=== PATIENT | male | born 1955 | race Caucasian/White ===

== ENCOUNTER → 2016-08-10 | Outpatient (CLI) | payer BC ==
[~2016-08-10] MED LIST: ASPI81TA28 PO; ATEN50TA8 PO; CRS10 PO; CTP/1 PO; DILT-119 PO; GLC/500 PO; GLIP-197 PO; GLIP5TAB11 PO; MULT-506 PO; MULT-884; ROSU20TA PO; ROSU5TAB PO; SPIR25TA PO; TRAM-10 PO
[2016-08-10 12:29] LABS: ESTIMATED AVERAGE GLUCOSE 194 mg/dl; HA1C FLAG Normal (Normal)
== END | disposition home or self-care (01) ==
LOC: C.LAB1850 10:46
PROVIDERS: ATTEND Internal Medicine
DX: E11.9 Type 2 diabetes mellitus without complications (principal)

== ENCOUNTER → 2016-10-04 | Day surgery (SDC) | payer BC ==
[2016-09-13 11:49] VITALS: Ht 182.9 cm; Wt 98.2 kg
[~2016-10-04] VITALS: Ht 182.9 cm; Wt 98.2 kg
[~2016-10-04] MED LIST changes: +500ML BSS 0.3ML EPI 1:1000PF IRRIG ONE; +ACETAMINOPHEN 325 MG TAB PO PRN; +AMVISC PLUS 0.8ML SYRINGE INT OCU ONE; +BSS FLUSH ONE; +EpINEphrine INJ 1MG/ML AMP 1 MG/ML AMP ONE; -GLIP5TAB11 PO; +LACTATED RINGER'S 1000ML 500 ML IV SCH; +LIDOCAINE 3.5% OPH GEL PER APPLICATION CHARGE ONE; +LIDOCAINE HCL 1% MPF 2 ML VIAL ONE; +MIDAZOLAM HCL 1 MG/ML 2ML VIAL ONE; -MULT-884; +OCUCOAT 1 ML SOLN IO ONE; +POVIDONE-IODINE OP SOLN 30 ML BTL ONE; +PROPARACAINE 0.5% OP SOLN PER DROP CHARGE OPR SCH; -ROSU20TA PO; -ROSU5TAB PO; +TOBRAMYCIN/DEXAMETHASONE OPH OINT PER APPLN CHARGE ONE; -TRAM-10 PO
[2016-10-04] MEDS: PHENYLEPHRINE HCL 2.5% OP SOLN PER DROP CHARGE OPR SCH ×2 (07:21→07:26)
[2016-10-04] MEDS: TROPICAMIDE 1% OP SOLN PER DROP CHARGE OPR SCH ×2 (07:22→07:27)
[2016-10-04] MEDS: CYCLOPENTOLATE HCL 1% OP SOLN PER DROP CHARGE OPR SCH ×2 (07:23→07:28)
[2016-10-04] MEDS: KETOROLAC 0.5% OP SOLN PER DROP CHARGE OPR SCH ×2 (07:24→07:29)
[2016-10-04] MEDS: GATIFLOXACIN OP SOLN PER DROP CHARGE OPR SCH ×2 (07:25→07:35)
--- NOTE | 2016-10-04 07:26 | History & Physical Bridge - [place] ---
H&P Re-Evaluation Bridge Note: I have examined the patient, reviewed the History & Physical and in the interval since the performance of the History & Physical I have noted the following changes of clinical significance: Diagnosis: Right Cataract Procedure: Right Cataract Removal with Lens Implant No changes noted
--- NOTE | 2016-10-04 08:08 | Discharge Instructions-SurgCtr ---
Discharge Instructions Date of Service Oct 04, 2016. Visit Reason for Visit: Cataract Right Eye Discharge Discharge Diagnosis / Problem: cataract Discharge Goals Goal(s): Improve function Medications Stopped Medications Name(s): Metformin 3 days ago Activity Recommendations Activity Limitations: per Instructions/Follow-up section Anesthesia . Post Anesthesia Instructions: If you have had General Anesthesia or IV Sedation: * Do not drive today. * Resume driving when surgeon permits. * Do not make important decisions or sign legal documents today. * Call surgeon for: 1. Temperature elevations greater than 101 degrees F. 2. Uncontrollable pain. 3. Excessive bleeding. 4. Persistent nausea and vomiting. 5. Medication intolerance (nausea, vomiting or rash). * For nausea and vomiting use only clear liquids such as: tea, soda, bouillon until nausea subsides, then gradually increase diet as tolerated. * If you have any concerns or questions, call your surgeon's office. If physician is unavailable and it is an emergency, call 911 or go to the nearest emergency room. . Instructions / Follow-Up Instructions / Follow-Up ACTIVITY RECOMMENDATIONS: * No strenuous lifting, jogging or running for 4 days * No swimming or yard work for 1 week. * Limited bending is permitted, such as putting on shoes. RETURN TO SCHOOL/WORK: No work until seen by physician in office. MEDICATIONS: Resume previous medications unless instructed otherwise by your surgeon. This includes eye drops for glaucoma. Zymaxid/Gatifloxacin (powers cap) - one drop every 2 hours until bedtime Nevanac/Ilevro/Prolensa/Ketorolac (upton cap) - one drop every 4 hours until bedtime Prednisolone (white/pink cap, SHAKE WELL) - one drop every 2 hours until bedtime Starting tomorrow - all 3 drops every 4 hours until seen in the office Optive drops - as needed for discomfort SPECIAL CARE INSTRUCTIONS: * Wear eyeshield when sleeping, for four nights. * You may wear your own glasses or sunglasses while awake. * You may read or watch TV * You may shower and wash your face, but be gentle around the eye and pat dry. * Blurry vision and mild irritation are normal. * Call office if pain is more severe or vision becomes dark at . FOLLOW UP VISIT: Follow-up with Dr Arzola tomorrow. Diet Recommendations Home Diet: resume previous diet Procedures Procedures Performed: Right Cataract Phacoemulsification With Intraocular Lens Implant Pending Studies Studies pending at discharge: no Medical Emergencies . Who to Call and When: Medical Emergencies: If at any time you feel your situation is an emergency, please call 911 immediately. . Non-Emergent Contact Non-Emergency issues call your: County Sheriff . . "Provider Documentation" section prepared by Aden Arzola.
--- NOTE | 2016-10-04 08:09 | [facility] Operative Report ---
Operative Report Date of Service Oct 04, 2016. Operative Report 1. PREOPERATIVE DIAGNOSIS: Cataract of the right eye. 2. POSTOPERATIVE DIAGNOSIS: Same. 3. PROCEDURE: Phacoemulsification with intraocular lens implantation of the right eye. SURGEON: Dr. Aden Arzola. ANESTHESIA: Topical Lidocaine gel, 1% Non- Preserved intracameral Lidocaine, and monitored intravenous sedation. INDICATIONS FOR THE PROCEDURE: The patient is a 61 - year-old male with a history of cataract of the right eye causing significant visual impairment. The details of the proposed procedure were explained to the patient who asked appropriate questions and following discussion of all risks, benefits and alternatives agreed to have the procedure done. 4. OPERATION AND FINDINGS: DESCRIPTION OF PROCEDURE: After informed consent was obtained, the patient was brought to the Operating Room at the [facility]. The patient was placed in a supine position and then the right eye was prepped and draped in the usual sterile fashion for intraocular surgery. A drop of topical Lidocaine gel was placed in the operative eye. A wire lid speculum was then placed in the fornices. A corneal paracentesis was then created temporally. The Non-Preserved Lidocaine was then instilled into the anterior chamber. The anterior chamber was then pressurized with viscoelastic. A 2.0 mm clear corneal incision was then created temporally. A cystotome was inserted into the anterior chamber and used to create a tear in the anterior lens capsule. This capsular tear was then used to create a small flap and the flap was dragged in a counterclockwise direction in order to create a continuous curvilinear capsulorrhexis. Hydrodissection was accomplished with balanced salt solution. Phacoemulsification of the lens nucleus was then performed in a standard [id number]-gpepecb technique. The phaco time was 28 seconds with an average power of 12 %. The remaining cortical material was removed using irrigation aspiration. The capsular bag was then filled with viscoelastic. A [employer] Lomb MI60L +23.0 diopters lens was then loaded into the injector and injected into the capsular bag. The remaining viscoelastic was removed with the irrigation aspiration handpiece. The wound was hydrated and then checked and found to be watertight. The intraocular pressure was checked and found to be adequate. The wire lid speculum was removed and the patient's face was cleaned and dried. TobraDex ointment was placed in the inferior fornix. The patient was discharged to the Recovery Room having tolerated the procedure well. There were no complications. The patient will be seen tomorrow in the office for follow-up. I attest to the content of the Intraoperative Record and any orders documented therein. Any exceptions are noted below.
[2016-10-04 08:12] VITALS: TEMP 36.7
--- NOTE | 2016-10-04 08:29 | Anesthesia Progress Nt - [facility] ---
Anesthesia Post Op Note Date & Time Oct 04, 2016 at 08:29 Vital Signs Pain Intensity: 0 Vital Signs Past 12 Hours Date Time Temp Pulse Resp B/P Pulse Ox O2 Delivery O2 Flow Rate FiO2 10/04/16 08:12 36.7 60 16 118/71 96 Room Air 10/04/16 07:10 36.5 65 16 157/96 95 Room Air Notes Mental Status: alert / awake / arousable, participated in evaluation Pt Amnestic to Procedure: No Nausea / Vomiting: adequately controlled Pain: adequately controlled Airway Patency, RR, SpO2: stable & adequate BP & HR: stable & adequate Hydration State: stable & adequate Anesthetic Complications: no major complications apparent Pt doing well. Recall as expected.
[2016-10-04 08:43] VITALS: BP 139/80; PULSE 60; O2SAT 95
== END | disposition home or self-care (01) ==
LOC: X.SURG 06:59
PROVIDERS: ATTEND Ophthalmology
DX: H26.9 Unspecified cataract (principal); H54.7 Unspecified visual loss; I10 Essential (primary) hypertension; E11.9 Type 2 diabetes mellitus without complications; C44.91 Basal cell carcinoma of skin, unspecified; M47.812 Spondylosis without myelopathy or radiculopathy, cervical region; M10.9 Gout, unspecified; E78.5 Hyperlipidemia, unspecified; M79.1 Myalgia; F17.200 Nicotine dependence, unspecified, uncomplicated; Z98.890 Other specified postprocedural states

== ENCOUNTER → 2017-02-15 | Outpatient (CLI) | payer BC ==
[~2017-02-15] MED LIST changes: -500ML BSS 0.3ML EPI 1:1000PF IRRIG ONE; -ACETAMINOPHEN 325 MG TAB PO PRN; -AMVISC PLUS 0.8ML SYRINGE INT OCU ONE; -BSS FLUSH ONE; -EpINEphrine INJ 1MG/ML AMP 1 MG/ML AMP ONE; -LACTATED RINGER'S 1000ML 500 ML IV SCH; -LIDOCAINE 3.5% OPH GEL PER APPLICATION CHARGE ONE; -LIDOCAINE HCL 1% MPF 2 ML VIAL ONE; -MIDAZOLAM HCL 1 MG/ML 2ML VIAL ONE; -OCUCOAT 1 ML SOLN IO ONE; -POVIDONE-IODINE OP SOLN 30 ML BTL ONE; -PROPARACAINE 0.5% OP SOLN PER DROP CHARGE OPR SCH; -TOBRAMYCIN/DEXAMETHASONE OPH OINT PER APPLN CHARGE ONE
[2017-02-15 13:57] LABS: ALT/SGPT 66 U/L (12-78); BLOOD UREA NITROGEN 14 mg/dl (7-18); BUN/CREATININE RATIO 14.3 (10-20); CALCIUM 9.7 mg/dl (8.5-10.1); CARBON DIOXIDE 27 mmol/L (21-32); CHLORIDE 97 mmol/L (98-107); CHOLESTEROL 186 mg/dl (0-200); CREATININE 0.99 mg/dl (0.60-1.40); GLUCOSE 247 mg/dl (70-99); POTASSIUM 3.7 mmol/L (3.5-5.1); SODIUM 132 mmol/L (136-145); TRIGLYCERIDES 637 mg/dl (0-150)
[2017-02-15 14:01] LABS: ALB/GLOB RATIO 0.9 (0.9-2); ALKALINE PHOSPHATASE 72 U/L (45-117); AST/SGOT 39 U/L (15-37); CHOLESTEROL/HDL RATIO 7.2; HDL CHOLESTEROL 26 mg/dl; PROSTATE SPECIFIC ANTIGEN 0.205 ng/ml (0.000-4.000)
[2017-02-15 14:02] LABS: ESTIMATED AVERAGE GLUCOSE 220 mg/dl; HA1C FLAG Normal (Normal)
--- NOTE | 2017-02-20 14:03 | CODING QUERY MEDICAL NECESSITY ---
SUPPORTING DIAGNOSIS NEEDED Dr. Armstrong, A supporting diagnosis is required for the test/procedure performed on this patient in order for us to be reimbursed by the patient's insurance. Please provide a supporting diagnosis for the following test/procedure listed below next to the test name along with your signature. *If there is no additional diagnosis for this patient that would support the following test/procedure please document that below next to the test/procedure. Test(s)/Procedure(s) that require a supporting diagnosis: * [id number] PSA DIAGNOSIS: DATE OF SERVICE: 02/15/17 Provider Signature: Date: Thank you Stanley Fernández [facility] Information Management Once completed, please kindly fax back to [phone] For questions please call [phone]
== END | disposition home or self-care (01) ==
LOC: C.LABBC 10:39
PROVIDERS: ATTEND Physician Assistant Medical
DX: E11.9 Type 2 diabetes mellitus without complications (principal); E78.5 Hyperlipidemia, unspecified; Z12.5 Encounter for screening for malignant neoplasm of prostate

== ENCOUNTER → 2017-08-22 | Outpatient (CLI) | payer OTHER ==
[2017-08-22 13:49] LABS: HEMOGLOBIN A1C 9.3 % (4.5-5.6)
[2017-08-22 16:03] LABS: BLOOD UREA NITROGEN 22 mg/dl (7-18); CALCIUM 10.1 mg/dl (8.5-10.1); CARBON DIOXIDE 25 mmol/L (21-32); CREATININE 1.06 mg/dl (0.60-1.40); GLUCOSE 294 mg/dl (70-99); POTASSIUM 3.7 mmol/L (3.5-5.1); SODIUM 132 mmol/L (136-145)
[2017-08-22 16:06] LABS: CHOLESTEROL 156 mg/dl (0-200); LDL CHOLESTEROL CALCULATED 52 mg/dl
== END | disposition home or self-care (01) ==
LOC: C.LABBC 10:37
PROVIDERS: ATTEND Physician Assistant Medical
DX: E11.9 Type 2 diabetes mellitus without complications (principal); I10 Essential (primary) hypertension; E78.5 Hyperlipidemia, unspecified

== ENCOUNTER 2020-05-29 13:04 | Inpatient (IN) ==
[2020-05-29 15:31] LABS: Basophils # (auto) 0.03 K/uL (0-0.2); Basophils % (auto) 0.4 %; Hematocrit (blood only) 36.5 % (42-52); Hemoglobin 12.3 g/dL (14.0-18.0); Immature Granulocytes # (auto) 0.02 K/uL (0.00-0.02); Immature Granulocytes % (auto) 0.3 %; Lymphocytes # (auto) 1.87 K/uL (1.2-3.4); Lymphocytes % (auto) 23.7 %; Mean Corpuscular Hemoglobin 32.1 pg (25-34); Mean Corpuscular Hgb Conc 33.7 g/dL (32-36); Mean Corpuscular Volume 95.3 fL (80-100); Mean Platelet Volume 10.1 fL (7.4-10.4); Monocytes # (auto) 0.69 K/uL (0.11-0.59); Monocytes % (auto) 8.8 %; Neutrophils # (auto) 5.27 K/uL (1.4-6.5); Neutrophils % (auto) 66.8 %; Platelet Count 243 K/uL (130-400); RDW Coefficient of Variation 13.4 % (11.5-14.5); RDW Standard Deviation 46.6 fL (36.4-46.3); Red Blood Count 3.83 M/uL (4.7-6.1); White Blood Count 7.88 K/uL (4.8-10.8)
[2020-05-29 15:35] LABS: Appearance Urine Clear (Clear); Bacteria Urine Automated Negative (Negative); Bilirubin Urine Negative (Negative); Blood Urine Negative (Negative); Color Urine Yellow; Epithelial Cell Urine Auto >30 /lpf (0-5); Glucose Urine UA Negative (Negative); Ketones Urine Negative (Negative); Leukocyte Esterase Urine Negative (Negative); Nitrite Urine Negative (Negative); Protein Urine 2+ (Negative); RBC Urine Automated 0-4 /hpf (0-4); Urobilinogen Urine Negative (Negative)
[2020-05-29 15:37] LABS: INR 1.1 (0.9-1.1); Partial Thromboplastin Ratio 1.1; Partial Thromboplastin Time 30.6 Seconds (21.0-31.0); Prothrombin Time 11.9 Seconds (9.0-12.0)
[2020-05-29 15:43] LABS: D Dimer 820 ug/L FEU (0-500)
--- NOTE | 2020-05-29 15:52 | XRay Report ---
SINGLE VIEW CHEST CLINICAL HISTORY: Sepsis. FINDINGS: An AP, portable, upright chest radiograph is obtained. No prior studies are available for c omparison at the time of dictation. The heart is mildly enlarged noting atherosclerotic calcificatio n of the thoracic aorta. The pulmonary vasculature is noncongested. There is subtle bilateral interst itial airspace consolidation seen in both lungs, greatest in the left midlung at the right lung base. No large pleural effusion or pneumothorax is seen. The bony thorax is grossly intact. IMPRESSION: 1. Cardiac enlargement without radiographic evidence of congestive failure. 2. Subtle interstitial airspace consolidation is seen throughout both lungs. Correlate clinically for evidence of an infectious/inflammatory pneumonitis. ACT 112: Negative or not required by law. Electronically signed by: Adin Little M.D. 05/29/2020 3:50 PM
[2020-05-29 15:54] LABS: Alanine Aminotransferase 52 U/L (12-78); Albumin Level 3.7 gm/dl (3.4-5.0); Aspartate Aminotransferase 48 U/L (15-37); BUN Creatinine Ratio 35.8 (10-20); Blood Urea Nitrogen 63 mg/dl (7-18); Calcium 9.2 mg/dl (8.5-10.1); Carbon Dioxide 25 mmol/L (21-32); Chloride 99 mmol/L (98-107); Creatinine Clr Calc Pharmacy 51.5 ml/min; Est GFR (African American) 45.7; Est GFR (Non-African American) 39.4; Glucose 170 mg/dl (70-99); Magnesium 2.3 mg/dl (1.8-2.4); Potassium 4.4 mmol/L (3.5-5.1); Sodium 131 mmol/L (136-145)
[2020-05-29 15:59] LABS: Albumin Globulin Ratio 0.7 (0.9-2); Alkaline Phosphatase 72 U/L (45-117); Bilirubin,Total 0.3 mg/dl (0.2-1); Globulin 5.4 gm/dl (2.5-4.0); Total Protein 9.1 gm/dl (6.4-8.2); Troponin I < 0.015 ng/ml (0-0.045)
[2020-05-29] MEDS ORDERED: DEXAMETHASONE SOD INJ 10 MG/ML VIAL IV ONE (16:19)
[2020-05-29 17:17] LABS: C Reactive Protein 4.91 mg/dl (0-0.29); Creatine Kinase 52 U/L (39-308)
--- NOTE | 2020-05-29 17:33 | History & Physical Report ---
Date of Service May 29, 2020 Assessment & Plan (1) Pneumonia due to COVID-19 virus: Continue Dexamethasone 6mg IV daily Start Remdesivir 5 day course Convalescent plasma discussed with the patient, information sheets given, blood consent signed. (2) Hypoxia: Without respiratory failure. Secondary to COVID-19 diagnosis as above. Aim O2 sats > 90%. (3) Dehydration: NSS 500ml bolus, no further IV fluids unless unable to take adequate oral intake as should correct fluid balance with holding his diuretics. Secondary to poor oral intake with HCTZ and spironolactone use. (4) Type 2 diabetes mellitus: HbA1C 7.1 in April Took Trulicity on Monday Will consult pharmacy for glycemic control with basal bolus insulin and coverage for steroid use. (5) HTN (hypertension): Hold HCTZ, spironolactone, clonidine. Continue diltiazen, atenolol and lisinopril with hold parameters. (6) Hyperlipidemia: Continue rosuvastatin 10mg PO HS (7) Gout: Continue allopurinol 100 mg PO daily (8) DVT prophylaxis: Lovenox 40 mg SQ BID History of Present Illness Chief Complaint: Generalized weakness Primary Care Provider: Trey Armstrong MD Paolo Ewing is a 65 year old male with T2DM who presents to the ER with 4 days of feeling generally fatigued. Due to his symptoms he was recently tested for ANKUR-COV2 at [facility] urgent care 2 days ago but is yet to have the results back. 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 He does note change in his taste and smell but not loss, loss of appetite. He has been drinking small amounts of clear water but nausea is limiting his oral intake. He didn't take any of his regular medications today (last took Trulicity on Monday). In the ER CXR was concerning for infectious/inflammatory pneumonitis and subsequent SARS-COV2 NAAT positive. He is unsure where he could've picked this up from. 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 O2 sats 91% on room air in the ER. Allergies Allergy/AdvReac Type Severity Reaction Status Date / Time lovastatin Allergy Unknown Unknown Verified 05/29/20 16:52 Home Medications Medication Instructions Recorded Confirmed Type multivitamin 1 tab PO QAM 12/10/18 05/29/20 History clonidine HCl 0.1 mg tablet 0.1 mg PO QAM #90 tab 10/31/19 05/29/20 Rx lisinopril 20 mg tablet 20 mg PO DAILY #90 tab 11/04/19 05/29/20 Rx varenicline 1 mg tablet 1 mg PO BID #56 tab 01/28/20 05/29/20 Rx cholecalciferol (vitamin D3) 50 50 mcg PO DAILY #30 cap 04/27/20 05/29/20 Rx mcg (2,000 unit) capsule hydrochlorothiazide 25 mg tablet 25 mg PO BID #180 tab 05/19/20 05/29/20 Rx metformin 500 mg tablet 1,000 mg PO BID #360 tab 05/19/20 05/29/20 Rx spironolactone 25 mg tablet 25 mg PO BID #180 tab 05/19/20 05/29/20 Rx acetaminophen [Tylenol Extra 1,000 mg PO Q6H PRN 05/29/20 05/29/20 History Strength] allopurinol 100 mg PO QPM 05/29/20 05/29/20 History aspirin [Aspirin Low Dose] 81 mg PO QAM 05/29/20 05/29/20 History atenolol 50 mg PO QPM 05/29/20 05/29/20 History diltiazem HCl 360 mg PO QPM 05/29/20 05/29/20 History dulaglutide [Trulicity] 3 mg SUBCUT WK 05/29/20 05/29/20 History insulin degludec [Tresiba 70 units SQ HS 05/29/20 05/29/20 History FlexTouch U-100] rosuvastatin 10 mg PO QPM 05/29/20 05/29/20 History Past Med/Surg History Medical History Benign neoplasm of large intestine Bulging of cervical intervertebral disc Cataract Cervical spondylosis Chronic kidney disease, stage 3a Hematuria History of basal cell carcinoma Lip dryness Low back pain Neck pain Obesity Personal history of nicotine dependence Proteinuria Psoriasis Spondylosis without myelopathy or radiculopathy, cervical region Steatosis of liver Type 2 diabetes mellitus Surgical History History of colonoscopy S/P cataract surgery RT Status post biopsy of skin NOSE Family History Mother Congestive heart failure Diabetes Hypertension in her 80's Father Congestive heart failure at age 91 Brother Diabetes Other Asthma Denies family history of Ovarian cancer Prostate cancer Breast cancer Lung cancer Colorectal cancer Social History Smoking Status: Never smoker Cigarettes Per Day: CIGARS ON OCCASION; Second Hand Exposure: No; Do You Dip or Chew Tobacco: No; Tobacco Cessation Education Requested by Patient: No Hx Alcohol Use: Yes Alcohol type: beer Hx Substance Use: No Preferred Language: Venezuelan Communication Ability: Effective Visual Impairment: No Limitations Hearing Ability: Normal Landscape Maintenance Internship Required: No Beliefs That Will Affect Care: None marital status: Current Living Situation: Spouse current occupational status: employed 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 - [employer] Other Information That Helps Us Care for You: No Feels Safe at Home: Yes Safety Concerns: Feels Safe At This Time Childhood Exposure to Second-Hand Smoke: Yes caffeine: Yes Dental Care, Regularly: Yes Physical Activity Frequency: Does not Exercise Seatbelt Use: always Sunscreen Use: No Assistive Devices: Denture - Upper Review of Systems Review of Systems: All systems reviewed & are unremarkable except as noted in HPI & below Musculoskeletal: + neck pain (left sided ongoing for 5-6 years) Physical Exam Constitutional: well developed; + not well nourished and no acute distress Eyes: + anicteric sclerae; normal pupil size ENMT: Ears: no external ear abnormality Nose: no external nose abnormality Mouth: + dry oral mucous membranes Neck: trachea midline, no thyromegaly Respiratory: normal respiratory effort, lungs clear to auscultation able to speak in complete sentences; no retractions, does not use accessory muscles and no cough Cardiovascular: Rate/Rhythm: regular rate and regular rhythm Heart Sounds: no murmur Vessels: no JVD Extremities: normal capillary refill; no calf tenderness and no pedal edema Gastrointestinal (Abdomen): Inspection/Auscultation: abdomen normal to inspection and normal bowel sounds; abdomen not distended Percussion/Palpation: abdomen soft; abdomen nontender, no guarding and abdomen not rigid Musculoskeletal: no cyanosis or clubbing, extremities motor strength 5/5 Left sided trapezius spasm and apin on palpation at insertion to skull. Skin: no rashes, warm and dry (no areas of cellulitis) Neurologic: moves all extremities and awake; no focal motor deficits (no lat eralizing) and not confused Psychiatric: A+Ox3, euthymic affect Genitourinary: no CVA tenderness Results & Data Results & Data ([facility]) Vital Signs (Past 12 Hours) Vital Signs Temp Pulse Pulse Resp BP BP Pulse Ox 05/29/20 16:20 101 H 20 91 05/29/20 16:10 100 H 23 94 05/29/20 16:01 98 H 19 93 05/29/20 16:00 98 H 25 H 139/66 93 05/29/20 15:50 97 H 11 L 93 05/29/20 15:40 95 H 14 92 05/29/20 15:30 97 H 16 131/77 93 05/29/20 15:20 99 H 18 92 05/29/20 15:10 94 H 12 92 05/29/20 15:01 98 H 17 05/29/20 15:00 96 H 22 207/97 H 05/29/20 14:50 96 H 17 91 05/29/20 14:40 95 H 18 93 05/29/20 14:31 96 H 22 175/89 H 93 05/29/20 14:30 97 H 20 93 05/29/20 14:29 103 H 21 92 05/29/20 14:26 104 H 100 H 19 134/103 H 134/103 H 93 05/29/20 13:27 36.7 C 101 H 18 118/74 99 Diagnostic Findings SINGLE VIEW CHEST IMPRESSION: 1. Cardiac enlargement without radiographic evidence of congestive failure. 2. Subtle interstitial airspace consolidation is seen throughout both lungs. Correlate clinically for evidence of an infectious/inflammatory pneumonitis. Medications Administered ER medications given: Decadron 6 mg IV ECG Indication: SOB/dyspnea Rate (beats per minute): 96 Rhythm: normal sinus Findings: + RBBB and + T-wave inversion (Inferior) Comparison ECG Date: from (May 13, 2004) Change: no significant change Code Status & VTE Plan Code Status Full VTE Prophylaxis Plan VTE Prophylaxis will be ordered: Yes PG Care Time/CCT Total # of Minutes Spent Total Time Spent with Patient: Total time spent is greater than 50% in coordination of care (as documented) at patient's floor/unit and/or counseling patient: Coding Level of Care Code 68298 Initial Inpt Care Lvl 3 Diagnoses Pneumonia due to COVID-19 virus U07.1; J12.89 Hypoxia R09.02 Dehydration E86.0 Type 2 diabetes mellitus E11.9 HTN (hypertension) I10 Hyperlipidemia E78.5 Gout M10.9 DVT prophylaxis Z29.9
--- NOTE | 2020-05-29 18:08 | Emergency Department Note ---
History of Present Illness General Chief complaint: Illness Stated complaint: FATIGUE, LACK OF ENERGY Time Seen by Provider: 05/29/20 14:23 History of Present Illness Provider complaint: Weakness Onset (ago): day(s) 4 Associated symptoms: + fever/chills and + malaise; no chest pain, no cough, no headaches, no nausea/vomiting and no shortness of breath 65-year-old male presents emergency department for weakness. Patient states over the last 4 days he has been feeling increasingly weak. He denies any fever, chest pain, difficulty breathing, hemoptysis, abdominal pain, dysuria, hematuria, melena, or hematochezia. Patient states he was recently tested for COVID-[address] [facility] urgent care but does not have the results back. Patient states he just does not feel good and wants to know what is going on. Home Medications Medication Instructions Recorded Confirmed Type multivitamin 1 tab PO QAM 12/10/18 05/29/20 History clonidine HCl 0.1 mg tablet 0.1 mg PO QAM #90 tab 10/31/19 05/29/20 Rx lisinopril 20 mg tablet 20 mg PO DAILY #90 tab 11/04/19 05/29/20 Rx varenicline 1 mg tablet 1 mg PO BID #56 tab 01/28/20 05/29/20 Rx cholecalciferol (vitamin D3) 50 50 mcg PO DAILY #30 cap 04/27/20 05/29/20 Rx mcg (2,000 unit) capsule hydrochlorothiazide 25 mg tablet 25 mg PO BID #180 tab 05/19/20 05/29/20 Rx metformin 500 mg tablet 1,000 mg PO BID #360 tab 05/19/20 05/29/20 Rx spironolactone 25 mg tablet 25 mg PO BID #180 tab 05/19/20 05/29/20 Rx acetaminophen [Tylenol Extra 1,000 mg PO Q6H PRN 05/29/20 05/29/20 History Strength] allopurinol 100 mg PO QPM 05/29/20 05/29/20 History aspirin [Aspirin Low Dose] 81 mg PO QAM 05/29/20 05/29/20 History atenolol 50 mg PO QPM 05/29/20 05/29/20 History diltiazem HCl 360 mg PO QPM 05/29/20 05/29/20 History dulaglutide [Trulicity] 3 mg SUBCUT WK 05/29/20 05/29/20 History insulin degludec [Tresiba 70 units SQ HS 05/29/20 05/29/20 History FlexTouch U-100] rosuvastatin 10 mg PO QPM 05/29/20 05/29/20 History Allergies Allergy/AdvReac Type Severity Reaction Status Date / Time lovastatin Allergy Unknown Unknown Verified 05/29/20 16:52 Past Med/Surg History Medical History Benign neoplasm of large intestine Bulging of cervical intervertebral disc Cataract Cervical spondylosis Chronic kidney disease, stage 3a Hematuria History of basal cell carcinoma Lip dryness Low back pain Neck pain Obesity Personal history of nicotine dependence Proteinuria Psoriasis Spondylosis without myelopathy or radiculopathy, cervical region Steatosis of liver Type 2 diabetes mellitus Surgical History History of colonoscopy S/P cataract surgery RT Status post biopsy of skin NOSE Family History Mother Congestive heart failure Diabetes Hypertension in her 80's Father Congestive heart failure at age 91 Brother Diabetes Other Asthma Denies family history of Ovarian cancer Prostate cancer Breast cancer Lung cancer Colorectal cancer Social History Smoking Status: Never smoker Cigarettes Per Day: CIGARS ON OCCASION; Second Hand Exposure: No; Hx Alcohol Use: Yes Alcohol type: beer Hx Substance Use: No Preferred Language: Romanian Communication Ability: Effective Visual Impairment: No Limitations Hearing Ability: Normal Tailer In Required: No Beliefs That Will Affect Care: None marital status: Current Living Situation: Spouse current occupational status: employed 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 - [employer] Feels Safe at Home: Yes Childhood Exposure to Second-Hand Smoke: Yes caffeine: Yes Dental Care, Regularly: Yes Physical Activity Frequency: Does not Exercise Seatbelt Use: always Sunscreen Use: No Assistive Devices: Denture - Upper Review of Systems A total of 10 systems reviewed and were otherwise negative Physical Exam Vital Signs Vital Signs - 24 hr 05/29/20 13:27 05/29/20 14:26 05/29/20 14:29 Temperature 36.7 C Temperature Source Temporal Artery Scan Pulse Rate 101 H 104 H 103 H Pulse Rate [Apical] 100 H Pulse Rate from SpO2 Sensor 98 H 88 Respiratory Rate 18 19 21 Respiratory Depth Normal Blood Pressure 118/74 134/103 H Blood Pressure [Left Arm] 134/103 H Blood Pressure Mean 88 112 Blood Pressure Mean [Left Arm] 113 Pulse Oximetry 99 93 92 Oxygen Delivery Method Room Air Room Air Sepsis Recent Fever Within 48 Hours No Sepsis New/Unexplained Change in Mental Status N/A Sepsis Action Taken by Nursing No Action Required 05/29/20 14:30 05/29/20 14:31 05/29/20 14:40 Temperature Temperature Source Pulse Rate 97 H 96 H 95 H Pulse Rate [Apical] Pulse Rate from SpO2 Sensor 97 H 97 H 95 H Respiratory Rate 20 22 18 Respiratory Depth Blood Pressure 175/89 H Blood Pressure [Left Arm] Blood Pressure Mean 107 Blood Pressure Mean [Left Arm] Pulse Oximetry 93 93 93 Oxygen Delivery Method Sepsis Recent Fever Within 48 Hours Sepsis New/Unexplained Change in Mental Status Sepsis Action Taken by Nursing 05/29/20 14:50 05/29/20 15:00 05/29/20 15:01 Temperature Temperature Source Pulse Rate 96 H 96 H 98 H Pulse Rate [Apical] Pulse Rate from SpO2 Sensor 96 H Respiratory Rate 17 22 17 Respiratory Depth Blood Pressure 207/97 H Blood Pressure [Left Arm] Blood Pressure Mean 127 Blood Pressure Mean [Left Arm] Pulse Oximetry 91 Oxygen Delivery Method Sepsis Recent Fever Within 48 Hours Sepsis New/Unexplained Change in Mental Status Sepsis Action Taken by Nursing 05/29/20 15:10 05/29/20 15:20 05/29/20 15:30 Temperature Temperature Source Pulse Rate 94 H 99 H 97 H Pulse Rate [Apical] Pulse Rate from SpO2 Sensor 95 H 99 H 97 H Respiratory Rate 12 18 16 Respiratory Depth Blood Pressure 131/77 Blood Pressure [Left Arm] Blood Pressure Mean 93 Blood Pressure Mean [Left Arm] Pulse Oximetry 92 92 93 Oxygen Delivery Method Sepsis Recent Fever Within 48 Hours Sepsis New/Unexplained Change in Mental Status Sepsis Action Taken by Nursing 05/29/20 15:40 05/29/20 15:50 05/29/20 16:00 Temperature Temperature Source Pulse Rate 95 H 97 H 98 H Pulse Rate [Apical] Pulse Rate from SpO2 Sensor 96 H 99 H 98 H Respiratory Rate 14 11 L 25 H Respiratory Depth Blood Pressure 139/66 Blood Pressure [Left Arm] Blood Pressure Mean 88 Blood Pressure Mean [Left Arm] Pulse Oximetry 92 93 93 Oxygen Delivery Method Sepsis Recent Fever Within 48 Hours Sepsis New/Unexplained Change in Mental Status Sepsis Action Taken by Nursing 05/29/20 16:01 05/29/20 16:10 05/29/20 16:20 Temperature Temperature Source Pulse Rate 98 H 100 H 101 H Pulse Rate [Apical] Pulse Rate from SpO2 Sensor 99 H 100 H 100 H Respiratory Rate 19 23 20 Respiratory Depth Blood Pressure Blood Pressure [Left Arm] Blood Pressure Mean Blood Pressure Mean [Left Arm] Pulse Oximetry 93 94 91 Oxygen Delivery Method Sepsis Recent Fever Within 48 Hours Sepsis New/Unexplained Change in Mental Status Sepsis Action Taken by Nursing Physical Exam GENERAL: He is oriented to person, place, and time. He appears well-developed and well-nourished. He does not appear distressed. HENT: Exam performed. - Head: Normocephalic and atraumatic. - Right Ear: External ear normal. No mastoid tenderness. - Left Ear: External ear normal. No mastoid tenderness. - Mouth/Throat: The oropharynx is clear and moist. No trismus in the jaw. No dental abscesses or uvula swelling. No oropharyngeal exudate or tonsillar abscesses. EYES: Conjunctivae and EOM are normal. Pupils are equal, round, and reactive to light. Right eye exhibits no discharge. Left eye exhibits no discharge. No scleral icterus. NECK: Normal range of motion. Neck supple. No JVD present. No spinous process tenderness present. No carotid bruit present. No rigidity. No tracheal deviation and normal range of motion present. No Brudzinski's sign and no Kernig's sign noted. CV: Normal rate, regular rhythm, normal heart sounds and intact distal pulses. There is no peripheral edema. Palpable radial pulses bue. PULM/CHEST: Effort normal and breath sounds normal. No respiratory distress. No stridor. He has no wheezes. He has no rales. - Chest Wall: He exhibits no tenderness. ABD: The abdomen is soft. Bowel sounds are normal. He has no distension. No mass is present. There is no tenderness. There is no rebound, no guarding, no Robertson's sign and no tenderness at McBurney's point. Rovsig negative. MUSC/SKEL: Normal range of motion. There is no peripheral edema, tenderness or deformity. LYMPH: No cervical adenopathy. NEURO: He is alert and oriented to person, place, and time. He has normal strength. No cranial nerve deficit or sensory deficit. Coordination and gait normal. GCS eye subscore is 4. GCS verbal subscore is 5. GCS motor subscore is 6. Cerebellar tests wnl. SKIN: Skin is warm and dry. He is not diaphoretic. PSYCH: He has a normal mood and affect. Behavior is normal. Judgment and thought content normal. Course Course 1423: The patient was evaluated in room C8. A complete history and physical exam was performed. Patient was seen in full airborne precautions. Patient was seen in N95's, gloves, gowns, face shield by myself and staff. Cardiac monitoring: An order was placed for continuous cardiac monitoring. The monitor shows a rate of 90 with sinus rhythm 1620: Patient is having low oxygen saturations on room air ranging from 90 to 92%. Patient has no history of obstructive lung disease. Patient did test p ositive for COVID-19. Patient was started on supplemental oxygen via nasal cannula which he states makes him feel better. Patient was also given 6 mg Decadron IV push. Patient creatinine is 1.77. Patient D-dimer is also elevated. Given the patient's elevated creatinine level, no CT of the chest will be obtained at this time. Chest x-ray does show bilateral airspace consolidations. [facility] hospitalist Dr. Oseguera has been notified and will evaluate the patient for admission. Administered Medications Discontinued Medications Dexamethasone (Dexamethasone Sod Inj 10 Mg/Ml Vial) 6 mg IV NOW ONE Stop: 05/29/20 16:20 Last Admin: 05/29/20 16:28 Dose: 6 mg Documented by: [id number] Medical Decision Making Laboratory Data Result diagrams: 05/29/20 15:00 05/29/20 15:00 Lab Results 05/29/20 05/29/20 05/29/20 Range/Units 14:31 15:00 15:00 WBC 7.88 (4.8-10.8) K/uL RBC 3.83 L (4.7-6.1) M/uL Hgb 12.3 L (14.0-18.0) g/dL Hct 36.5 L (42-52) % MCV 95.3 (80-100) fL MCH 32.1 (25-34) pg MCHC 33.7 (32-36) g/dL RDW Std Deviation 46.6 H (36.4-46.3) fL RDW Coeff of Kaycee 13.4 (11.5-14.5) % Plt Count 243 (130-400) K/uL MPV 10.1 (7.4-10.4) fL Immature Gran % (Auto) 0.3 % Neut % (Auto) 66.8 % Lymph % (Auto) 23.7 % [place] % (Auto) 8.8 % Eos % (Auto) 0.0 % Baso % (Auto) 0.4 % Neut # (Auto) 5.27 (1.4-6.5) K/uL Lymph # (Auto) 1.87 (1.2-3.4) K/uL [place] # (Auto) 0.69 H (0.11-0.59) K/uL Eos # (Auto) 0.00 (0-0.5) K/uL Baso # (Auto) 0.03 (0-0.2) K/uL Immature Gran # (Auto) 0.02 (0.00-0.02) K/uL PT 11.9 (9.0-12.0) Seconds INR 1.1 (0.9-1.1) APTT 30.6 (21.0-31.0) Seconds PTT Ratio 1.1 D-Dimer 820 H* (0-500) ug/L FEU Sodium (136-145) mmol/L Potassium (3.5-5.1) mmol/L Chloride (98-107) mmol/L Carbon Dioxide (21-32) mmol/L Anion Gap (3-11) BUN (7-18) mg/dl Creatinine (0.6-1.4) mg/dl Est Cr Clr Drug Dosing ml/min Est GFR ( Amer) Est GFR (Non-Af Amer) BUN/Creatinine Ratio (10-20) Glucose (70-99) mg/dl Lactate (0.4-2.0) mmol/L Calcium (8.5-10.1) mg/dl Magnesium (1.8-2.4) mg/dl Total Bilirubin (0.2-1) mg/dl AST (15-37) U/L ALT (12-78) U/L Alkaline Phosphatase (45-117) U/L Lactate Dehydrogenase (87-241) U/L Total Creatine Kinase (39-308) U/L Troponin I (0-0.045) ng/ml C-Reactive Protein (0-0.29) mg/dl Total Protein (6.4-8.2) gm/dl Albumin (3.4-5.0) gm/dl Globulin (2.5-4.0) gm/dl Albumin/Globulin Ratio (0.9-2) Procalcitonin (0-0.5) ng/ml Urine Color Yellow Urine Appearance Clear (Clear) Urine pH 5.0 (4.5-7.5) Ur Specific [place] 1.020 (1.000-1.030) Urine Protein 2+ H (Negative) Urine Glucose (UA) Negative (Negative) Urine Ketones Negative (Negative) Urine Blood Negative (Negative) Urine Nitrite Negative (Negative) Urine Bilirubin Negative (Negative) Urine Urobilinogen Negative (Negative) Ur Leukocyte Esterase Negative (Negative) Urine WBC (Auto) 1-5 (0-5) /hpf Urine RBC (Auto) 0-4 (0-4) /hpf U Hyaline Cast (Auto) 1-5 (0-5) /lpf U Epithel Cells (Auto) >30 H (0-5) /lpf Urine Bacteria (Auto) Negative (Negative) COVID-19 Eval Order SARS-CoV-2, RNA, NAAT (NEGATIVE) 05/29/20 05/29/20 05/29/20 Range/Units 15:00 15:00 15:00 WBC (4.8-10.8) K/uL RBC (4.7-6.1) M/uL Hgb (14.0-18.0) g/dL Hct (42-52) % MCV (80-100) fL MCH (25-34) pg MCHC (32-36) g/dL RDW Std Deviation (36.4-46.3) fL RDW Coeff of Kaycee (11.5-14.5) % Plt Count (130-400) K/uL MPV (7.4-10.4) fL Immature Gran % (Auto) % Neut % (Auto) % Lymph % (Auto) % [place] % (Auto) % Eos % (Auto) % Baso % (Auto) % Neut # (Auto) (1.4-6.5) K/uL Lymph # (Auto) (1.2-3.4) K/uL [place] # (Auto) (0.11-0.59) K/uL Eos # (Auto) (0-0.5) K/uL Baso # (Auto) (0-0.2) K/uL Immature Gran # (Auto) (0.00-0.02) K/uL PT (9.0-12.0) Seconds INR (0.9-1.1) APTT (21.0-31.0) Seconds PTT Ratio D-Dimer (0-500) ug/L FEU Sodium 131 L (136-145) mmol/L Potassium 4.4 (3.5-5.1) mmol/L Chloride 99 (98-107) mmol/L Carbon Dioxide 25 (21-32) mmol/L Anion Gap 7.0 (3-11) BUN 63 H (7-18) mg/dl Creatinine 1.77 H (0.6-1.4) mg/dl Est Cr Clr Drug Dosing 51.5 ml/min Est GFR ( Amer) 45.7 Est GFR (Non-Af Amer) 39.4 BUN/Creatinine Ratio 35.8 H (10-20) Glucose 170 H (70-99) mg/dl Lactate (0.4-2.0) mmol/L Calcium 9.2 (8.5-10.1) mg/dl Magnesium 2.3 (1.8-2.4) mg/dl Total Bilirubin 0.3 (0.2-1) mg/dl AST 48 H (15-37) U/L ALT 52 (12-78) U/L Alkaline Phosphatase 72 (45-117) U/L Lactate Dehydrogenase (87-241) U/L Total Creatine Kinase 52 (39-308) U/L Troponin I < 0.015 (0-0.045) ng/ml C-Reactive Protein 4.91 H (0-0.29) mg/dl Total Protein 9.1 H (6.4-8.2) gm/dl Albumin 3.7 (3.4-5.0) gm/dl Globulin 5.4 H (2.5-4.0) gm/dl Albumin/Globulin Ratio 0.7 L (0.9-2) Procalcitonin 0.05 (0-0.5) ng/ml Urine Color Urine Appearance (Clear) Urine pH (4.5-7.5) Ur Specific [place] (1.000-1.030) Urine Protein (Negative) Urine Glucose (UA) (Negative) Urine Ketones (Negative) Urine Blood (Negative) Urine Nitrite (Negative) Urine Bilirubin (Negative) Urine Urobilinogen (Negative) Ur Leukocyte Esterase (Negative) Urine WBC (Auto) (0-5) /hpf Urine RBC (Auto) (0-4) /hpf U Hyaline Cast (Auto) (0-5) /lpf U Epithel Cells (Auto) (0-5) /lpf Urine Bacteria (Auto) (Negative) COVID-19 Eval Order Covid19 [facility] SARS-CoV-2, RNA, NAAT (NEGATIVE) 05/29/20 05/29/20 05/29/20 Range/Units 15:00 15:00 15:33 WBC (4.8-10.8) K/uL RBC (4.7-6.1) M/uL Hgb (14.0-18.0) g/dL Hct (42-52) % MCV (80-100) fL MCH (25-34) pg MCHC (32-36) g/dL RDW Std Deviation (36.4-46.3) fL RDW Coeff of Kaycee (11.5-14.5) % Plt Count (130-400) K/uL MPV (7.4-10.4) fL Immature Gran % (Auto) % Neut % (Auto) % Lymph % (Auto) % [place] % (Auto) % Eos % (Auto) % Baso % (Auto) % Neut # (Auto) (1.4-6.5) K/uL Lymph # (Auto) (1.2-3.4) K/uL [place] # (Auto) (0.11-0.59) K/uL Eos # (Auto) (0-0.5) K/uL Baso # (Auto) (0-0.2) K/uL Immature Gran # (Auto) (0.00-0.02) K/uL PT (9.0-12.0) Seconds INR (0.9-1.1) APTT (21.0-31.0) Seconds PTT Ratio D-Dimer (0-500) ug/L FEU Sodium (136-145) mmol/L Potassium (3.5-5.1) mmol/L Chloride (98-107) mmol/L Carbon Dioxide (21-32) mmol/L Anion Gap (3-11) BUN (7-18) mg/dl Creatinine (0.6-1.4) mg/dl Est Cr Clr Drug Dosing ml/min Est GFR ( Amer) Est GFR (Non-Af Amer) BUN/Creatinine Ratio (10-20) Glucose (70-99) mg/dl Lactate 1.2 (0.4-2.0) mmol/L Calcium (8.5-10.1) mg/dl Magnesium (1.8-2.4) mg/dl Total Bilirubin (0.2-1) mg/dl AST (15-37) U/L ALT (12-78) U/L Alkaline Phosphatase (45-117) U/L Lactate Dehydrogenase 248 H (87-241) U/L Total Creatine Kinase (39-308) U/L Troponin I (0-0.045) ng/ml C-Reactive Protein (0-0.29) mg/dl Total Protein (6.4-8.2) gm/dl Albumin (3.4-5.0) gm/dl Globulin (2.5-4.0) gm/dl Albumin/Globulin Ratio (0.9-2) Procalcitonin (0-0.5) ng/ml Urine Color Urine Appearance (Clear) Urine pH (4.5-7.5) Ur Specific [place] (1.000-1.030) Urine Protein (Negative) Urine Glucose (UA) (Negative) Urine Ketones (Negative) Urine Blood (Negative) Urine Nitrite (Negative) Urine Bilirubin (Negative) Urine Urobilinogen (Negative) Ur Leukocyte Esterase (Negative) Urine WBC (Auto) (0-5) /hpf Urine RBC (Auto) (0-4) /hpf U Hyaline Cast (Auto) (0-5) /lpf U Epithel Cells (Auto) (0-5) /lpf Urine Bacteria (Auto) (Negative) COVID-19 Eval Order SARS-CoV-2, RNA, NAAT POSITIVE A* (NEGATIVE) Imaging Data Radiologist's Impression: SINGLE VIEW CHEST CLINICAL HISTORY: Sepsis. FINDINGS: An AP, portable, upright chest radiograph is obtained. No prior studies are available for comparison at the time of dictation. The heart is mildly enlarged noting atherosclerotic calcification of the thoracic aorta. The pulmonary vasculature is noncongested. There is subtle bilateral interstitial airspace consolidation seen in both lungs, greatest in the left midlung at the right lung base. No large pleural effusion or pneumothorax is seen. The bony thorax is grossly intact. IMPRESSION: 1. Cardiac enlargement without radiographic evidence of congestive failure. 2. Subtle interstitial airspace consolidation is seen throughout both lungs. Correlate clinically for evidence of an infectious/inflammatory pneumonitis. ACT 112: Negative or not required by law. Electronically signed by: Adin Little M.D. 05/29/2020 3:50 PM ECG Data Indication: + weakness Rate (beats per minute): 96 Rhythm: + normal sinus ECG Intervals/blocks: + Right Bundle branch block, + Normal SD and + Normal QT-c ECG ST segments: + Normal ST segments Additional Comments: QRS 142 MDM Narrative 1423: The patient was evaluated in room C8. A complete history and physical exam was performed. Patient was seen in full airborne precautions. Patient was seen in N95's, gloves, gowns, face shield by myself and staff. Cardiac monitoring: An order was placed for continuous cardiac monitoring. The monitor shows a rate of 90 with sinus rhythm 1620: Patient is having low oxygen saturations on room air ranging from 90 to 92%. Patient has no history of obstructive lung disease. Patient did test positive for COVID-19. Patient was started on supplemental oxygen via nasal cannula which he states makes him feel better. Patient was also given 6 mg Decadron IV push. Patient creatinine is 1.77. Patient D-dimer is also elevated. Given the patient's elevated creatinine level, no CT of the chest will be obtained at this time. Chest x-ray does show bilateral airspace consolidations. [facility] hospitalist Dr. Oseguera has been notified and will evaluate the patient for admission. Impression & Plan Pneumonia due to COVID-19 virus Discharge Plan Visit Data Chief Complaint: Illness Stated Complaint: FATIGUE, LACK OF ENERGY ED Provider: Jack Vaughn Discharge Problem: Pneumonia due to COVID-19 virus Patient Disposition: Being Evaluated by Hospitalist Forms Stand Alone Forms: My [facility] Prescriptions Prescriptions: No Action clonidine HCl 0.1 mg tablet 0.1 mg PO QAM Qty: 90 RF: 3 lisinopril 20 mg tablet 20 mg PO DAILY Qty: 90 RF: 3 cholecalciferol (vitamin D3) 50 mcg (2,000 unit) capsule 50 mcg PO DAILY Qty: 30 RF: 0 hydrochlorothiazide 25 mg tablet 25 mg PO BID Qty: 180 RF: 3 spironolactone 25 mg tablet 25 mg PO BID Qty: 180 RF: 3 metformin 500 mg tablet 1,000 mg PO BID Qty: 360 RF: 1 multivitamin [Multiple Vitamins] tablet 1 tab PO QAM RF: 0 Chantix Continuing Month Box 1 mg tablet 1 mg PO BID Qty: 56 RF: 3 diltiazem HCl 360 mg capsule,extended release 24 hr 360 mg PO QPM RF: 0 allopurinol 100 mg tablet 100 mg PO QPM RF: 0 atenolol 50 mg tablet 50 mg PO QPM RF: 0 rosuvastatin 10 mg tablet 10 mg PO QPM RF: 0 Tresiba FlexTouch U-100 100 unit/mL (3 mL) insulin pen 70 units SQ HS RF: 0 Trulicity 3 mg/0.5 mL pen injector 3 mg subcut WK RF: 0 aspirin [Aspirin Low Dose] 81 mg Tablet,Delayed Release (Dr/Ec) 81 mg PO QAM RF: 0 acetaminophen [Tylenol Extra Strength] 500 mg Tablet 1,000 mg PO Q6H PRN (Reason: Pain) RF: 0 Referrals Referrals: Trey Armstrong MD [Primary Care Provider] -
[2020-05-29] MEDS ORDERED: SODIUM CHLORIDE 0.9% 1000ML 500 ML IV ONE (18:16)
[2020-05-29] MEDS ORDERED: ACETAMINOPHEN 500 MG TAB PO PRN (20:07)
[2020-05-29] MEDS ORDERED: PHARMACY GLYCEMIC MGMT CONSULT PRN (20:07)
[2020-05-29] MEDS ORDERED: POLYETHYLENE (MIRALAX) 17 GM PACK PO PRN (20:07)
[2020-05-29] MEDS ORDERED: ALUMINUM/MAGNESIUM SUSP 30 ML UDC PO PRN (20:07)
[2020-05-29] MEDS ORDERED: ONDANSETRON INJ 2 MG/ML 2 ML VIAL IV PRN (20:07)
[2020-05-29] MEDS ORDERED: INSULIN GLARGINE SOLOSTAR 100 UNITS/ML 3 ML PEN SC ONE (21:00)
--- NOTE | 2020-05-29 21:05 | Pharmacy Report ---
Glycemic Control Consultation - Date of Service May 29, 2020 - Scope Scope: Glycemic Pharmacist consulted for glycemic control and to write orders per [facility] inpatient glycemic control protocol. - Objective Weight: 102 kg Accuchecks BSG (last 24hrs): 05/29/20 05/29/20 15:00 20:43 Glucose 170 H POC Glucose 201 H Laboratory Data (last 24hrs): 05/29/20 15:00 Potassium 4.4 Carbon Dioxide 25 Anion Gap 7.0 Creatinine 1.77 H Est Cr Clr Drug Dosing 51.5 - Recent Pertinent Medications Outpatient Anti-diabetic Regimen: * Tresiba 70 units SC HS * Metformin * Trulicity * A1c = 7.1 % on 04/23/20 Risk Factors for Insulin Resistance: * Steroids: dexamethasone 6 mg IV x1 * Diet: T2DM - Assessment & Plan Assessment & Plan: ASSESSMENT: * 65 yo M admitted 05/29 with COVID-19 * High outpatient basal insulin but no bolus insulin - basal insulin may cover some prandial needs. Will therefore reduce basal insulin by ~30% and add Novolog ACHS and overnight check PLAN FOR INPATIENT GLYCEMIC CONTROL: * Holding outpatient oral diabetes medications * Basal insulin * Lantus 50 units SQ x1 * Bolus insulin * NovoLog per scale ACHS or Q6hrs while NPO * Goal Range: 120-150 mg/dL * Correction Factor: 20 mg/dL/unit * Nutritional / Prandial insulin per carb ratio of 1 unit per 7 grams CHO consumed * Please note that the plan above was derived based on current level of insulin resistance and hospital stress. These recommendations are appropriate for inpatient admission only. Plan of care upon discharge will need to be reassessed to avoid potential outpatient hypo/hyperglycemia. Thank you.
[2020-05-29] MEDS: INSULIN ASPART 100 UNITS/ML 3 ML PEN SC SCH (21:49)
[2020-05-29] MEDS: ROSUVASTATIN CALCIUM 10 MG TAB PO SCH (21:49)
[2020-05-29] MEDS: allopurinoL 100 MG TAB PO SCH (21:50)
[2020-05-29] MEDS: ATENOLOL 50 MG TABLET PO SCH (21:50)
--- NOTE | 2020-05-29 23:21 | Electrocardiogram Report ---
Test Reason : Blood Pressure : / mmHG Vent. Rate : 096 BPM Atrial Rate : 096 BPM P-R Int : 152 ms QRS Dur : 142 ms QT Int : 360 ms P-R-T Axes : 055 -09 -09 degrees QTc Int : 454 ms Normal sinus rhythm Right bundle branch block Abnormal ECG When compared with ECG of 13-MAY-2004 13:01, No significant change Confirmed by González Pearce ([id number]) on 05/29/2020 11:21:33 PM Referred By: REFERRED SELF Confirmed By:González Pearce
[2020-05-30] MEDS ORDERED: INSULIN ASPART 100 UNITS/ML 3 ML PEN SC ONE (02:00)
[2020-05-30] MEDS ORDERED: REMDESIVIR 200 MG in SODIUM CHLORIDE 0.9% 210 ML IV ONE (02:00)
[2020-05-30] MEDS: SODIUM CHLORIDE 0.9% 10ML FLUSH IV SCH (02:47)
[2020-05-30 07:06] LABS: Basophils # (auto) 0.02 K/uL (0-0.2); Basophils % (auto) 0.3 %; Hematocrit (blood only) 36.8 % (42-52); Hemoglobin 12.5 g/dL (14.0-18.0); Immature Granulocytes # (auto) 0.02 K/uL (0.00-0.02); Immature Granulocytes % (auto) 0.3 %; Lymphocytes % (auto) 19.2 %; Mean Corpuscular Hemoglobin 31.9 pg (25-34); Mean Corpuscular Volume 93.9 fL (80-100); Mean Platelet Volume 10.1 fL (7.4-10.4); Monocytes # (auto) 0.58 K/uL (0.11-0.59); Monocytes % (auto) 7.4 %; Neutrophils # (auto) 5.71 K/uL (1.4-6.5); Neutrophils % (auto) 72.8 %; Platelet Count 250 K/uL (130-400); RDW Coefficient of Variation 13.1 % (11.5-14.5); RDW Standard Deviation 45.3 fL (36.4-46.3); Red Blood Count 3.92 M/uL (4.7-6.1); White Blood Count 7.83 K/uL (4.8-10.8)
[2020-05-30 07:31] LABS: Albumin Level 3.4 gm/dl (3.4-5.0); BUN Creatinine Ratio 39.7 (10-20); Calcium 9.3 mg/dl (8.5-10.1); Creatinine Clr Calc Pharmacy 65.5 ml/min; Est GFR (African American) 61.2; Est GFR (Non-African American) 52.8; Potassium 4.4 mmol/L (3.5-5.1)
[2020-05-30 07:34] LABS: Albumin Globulin Ratio 0.6 (0.9-2); Bilirubin,Total 0.4 mg/dl (0.2-1); Globulin 5.4 gm/dl (2.5-4.0); Total Protein 8.8 gm/dl (6.4-8.2)
[2020-05-30] MEDS ORDERED: cloNIDine HCL 0.1 MG TAB PO SCH (09:00)
[2020-05-30] MEDS ORDERED: INSULIN HUMAN NPH SC SCH (09:00)
[2020-05-30] MEDS: VARENICLINE 1 MG TAB PO SCH ×2 (09:10→20:10)
[2020-05-30] MEDS: lisinopril 20 MG TAB PO SCH (09:11)
[2020-05-30] MEDS: ASPIRIN 81 MG ECTAB PO SCH (09:11)
[2020-05-30] MEDS: CHOLECALCIFEROL 1,000 UNITS 25 MCG TAB PO SCH (09:12)
[2020-05-30] MEDS: dexAMETHasone 6 MG in SYRINGE 0 ML IV SCH (09:12)
[2020-05-30] MEDS: ENOXAPARIN INJ 40 MG/0.4 ML SYR SQ SCH ×2 (09:12→20:09)
[2020-05-30] MEDS: MULTIVITAMIN TAB PO SCH (09:12)
[2020-05-30] MEDS: INSULIN ASPART 100 UNITS/ML 3 ML PEN SC SCH ×4 (09:29→20:48)
--- NOTE | 2020-05-30 10:47 | Pharmacy Report ---
Pharmacy Glycemic Short Note 2 - Date of Service May 30, 2020 - Glycemic Short BSG Results (Last 24 hours): 05/29/20 05/29/20 05/30/20 15:00 20:43 01:51 Glucose 170 H POC Glucose 201 H 251 H 05/30/20 05/30/20 06:35 07:19 Glucose 197 H POC Glucose 201 H ASSESSMENT: 05/30: * Patient received total of 53 units of insulin yesterday, of which 50 were basal (reduction of home dose of 70 units) * BSGs this AM elevated at 197 mg/dL - likely related to steroids, continues on DXM 6 iv daily * Plan to give NPH 0.25 unit/kg daily to help with coverage of IV DXM * Continue same basal insulin for hs PLAN FOR INPATIENT GLYCEMIC CONTROL: * Holding outpatient oral diabetes medications * Basal insulin * Lantus 50 units HS * Bolus insulin * NovoLog per scale ACHS or Q6hrs while NPO * Goal Range: 120-150 mg/dL * Correction Factor: 20 mg/dL/unit * Nutritional / Prandial insulin per carb ratio of 1 unit per 6 grams CHO consumed * Please note that the plan above was derived based on current level of insulin resistance and hospital stress. These recommendations are appropriate for inpatient admission only. Plan of care upon discharge will need to be reassessed to avoid potential outpatient hypo/hyperglycemia. Thank you.
[2020-05-30] MEDS: ROSUVASTATIN CALCIUM 10 MG TAB PO SCH (20:10)
[2020-05-30] MEDS: ATENOLOL 50 MG TABLET PO SCH (20:11)
[2020-05-30] MEDS: allopurinoL 100 MG TAB PO SCH (20:11)
[2020-05-30] MEDS: INSULIN GLARGINE SOLOSTAR 100 UNITS/ML 3 ML PEN SC SCH (20:48)
--- NOTE | 2020-05-30 22:00 | Hospitalist Progress Note ---
Date of Service May 30, 2020 Assessment & Plan (1) Pneumonia due to COVID-19 virus: Continue Dexamethasone 6mg IV daily Start Remdesivir 5 day course: will cotninue for now. Patient continues to require supplemental oxygen, on 2 liters nasal cannula. Convalescent plasma discussed with the patient, information sheets given, blood consent signed. (2) Hypoxia: Without respiratory failure. Secondary to COVID-19 diagnosis as above. Aim O2 sats > 90%. (3) Dehydration: NSS 500ml bolus, no further IV fluids unless unable to take adequate oral intake as should correct fluid balance with holding his diuretics. Secondary to poor oral intake with HCTZ and spironolactone use. (4) Type 2 diabetes mellitus: HbA1C 7.1 in April Took Trulicity on Monday Will consult pharmacy for glycemic control with basal bolus insulin and coverage for steroid use. (5) HTN (hypertension): Hold HCTZ, spironolactone, clonidine. Continue diltiazen, atenolol and lisinopril with hold parameters. will closely monitor. (6) Hyperlipidemia: Continue rosuvastatin 10mg PO HS (7) Gout: Continue allopurinol 100 mg PO daily (8) DVT prophylaxis: Lovenox 40 mg SQ BID Admission and Anticipated Discharge Date Admission Date: May 29, 2020 Subjective Patient reports no new symptoms at this time. Review of Systems Review of Systems: All systems reviewed & are unremarkable except as noted in HPI & below Physical Exam Physical Exam: Constitutional: well developed; + not well nourished and no acute distress Eyes: + anicteric sclerae; normal pupil size ENMT: Ears: no external ear abnormality Nose: no external nose abnormality Mouth: + dry oral mucous membranes Neck: trachea midline, no thyromegaly Respiratory: normal respiratory effort, lungs clear to auscultation able to speak in complete sentences; no retractions, does not use accessory muscles and no cough Cardiovascular: Rate/Rhythm: regular rate and regular rhythm Heart Sounds: no murmur Vessels: no JVD Extremities: normal capillary refill; no calf tenderness and no pedal edema Gastrointestinal (Abdomen): Inspection/Auscultation: abdomen normal to inspection and normal bowel sounds; abdomen not distended Percussion/Palpation: abdomen soft; abdomen nontender, no guarding and abdomen not rigid Musculoskeletal: no cyanosis or clubbing, extremities motor strength 5/5 Left sided trapezius spasm and apin on palpation at insertion to skull. Skin: no rashes, warm and dry (no areas of cellulitis) Neurologic: moves all extremities and awake; no focal motor deficits (no lateralizing) and not confused Psychiatric: A+Ox3, euthymic affect Genitourinary: no CVA tenderness Results & Data Results & Data ([facility]) Vital Signs (Past 12 Hours) Vital Signs Temp Pulse Pulse Pulse Resp BP Pulse Ox 05/30/20 19:11 36.6 C 72 19 99/64 L 93 05/30/20 16:38 74 05/30/20 16:00 36.7 C 73 16 99/59 L 95 05/30/20 11:00 36.7 C 81 14 102/58 L 95 PG Care Time/CCT Total # of Minutes Spent Total Time Spent with Patient: Total time spent is greater than 50% in coordination of care (as documented) at patient's floor/unit and/or counseling patient: Coding Level of Care Code 11980 Subseq Hosp Care Lvl 3 Diagnoses Pneumonia due to COVID-19 virus U07.1; J12.89 Hypoxia R09.02 Dehydration E86.0 Type 2 diabetes mellitus E11.9 HTN (hypertension) I10 Hyperlipidemia E78.5 Gout M10.9 DVT prophylaxis Z29.9
[2020-05-31] MEDS ORDERED: INSULIN ASPART 100 UNITS/ML 3 ML PEN SC SCH
[2020-05-31] MEDS: REMDESIVIR 100 MG in SODIUM CHLORIDE 0.9% 230 ML IV SCH (01:49)
[2020-05-31] MEDS: SODIUM CHLORIDE 0.9% 10ML FLUSH IV SCH (04:55)
[2020-05-31] MEDS: ENOXAPARIN INJ 40 MG/0.4 ML SYR SQ SCH ×2 (08:00→21:01)
[2020-05-31] MEDS: CHOLECALCIFEROL 1,000 UNITS 25 MCG TAB PO SCH (08:01)
[2020-05-31] MEDS: MULTIVITAMIN TAB PO SCH (08:01)
[2020-05-31] MEDS: ASPIRIN 81 MG ECTAB PO SCH (08:01)
[2020-05-31] MEDS: VARENICLINE 1 MG TAB PO SCH ×2 (08:01→21:01)
[2020-05-31] MEDS: dexAMETHasone 6 MG in SYRINGE 0 ML IV SCH (08:02)
[2020-05-31] MEDS: lisinopril 20 MG TAB PO SCH (08:02)
[2020-05-31] MEDS: INSULIN ASPART 100 UNITS/ML 3 ML PEN SC SCH ×4 (08:16→21:02)
[2020-05-31] MEDS: INSULIN HUMAN NPH SC SCH (08:17)
[2020-05-31] MEDS ORDERED: LACTATED RINGER'S 1,000 ML IV SCH (14:15)
[2020-05-31] MEDS: ATENOLOL 50 MG TABLET PO SCH (21:01)
[2020-05-31] MEDS: allopurinoL 100 MG TAB PO SCH (21:01)
[2020-05-31] MEDS: ROSUVASTATIN CALCIUM 10 MG TAB PO SCH (21:01)
[2020-05-31] MEDS: INSULIN GLARGINE SOLOSTAR 100 UNITS/ML 3 ML PEN SC SCH (21:02)
--- NOTE | 2020-05-31 22:34 | Hospitalist Progress Note ---
Date of Service May 31, 2020 Assessment & Plan (1) Pneumonia due to COVID-19 virus: Continue Dexamethasone 6mg IV daily Remdesivir 5 day course: will cotninue for now. Now on room air, however BP has been low. will monitor. Convalescent plasma discussed with the patient, information sheets given, blood consent signed. (2) Hypoxia: Without respiratory failure. Secondary to COVID-19 diagnosis as above. Aim O2 sats > 90%. (3) Dehydration: NSS 500ml bolus, no further IV fluids unless unable to take adequate oral intake as should correct fluid balance with holding his diuretics. Secondary to poor oral intake with HCTZ and spironolactone use. (4) Type 2 diabetes mellitus: HbA1C 7.1 in April Took Trulicity on Monday Will consult pharmacy for glycemic control with basal bolus insulin and coverage for steroid use. (5) HTN (hypertension): Hold HCTZ, spironolactone, clonidine. Hold diltiazen, continue atenolol and lisinopril with hold parameters. will closely monitor. BP has been low, likely secondary to COVID infection. will likely require full 5 day course, despite being on room air. (6) Hyperlipidemia: Continue rosuvastatin 10mg PO HS (7) Gout: Continue allopurinol 100 mg PO daily (8) DVT prophylaxis: Lovenox 40 mg SQ BID Admission and Anticipated Discharge Date Admission Date: May 29, 2020 Subjective Patient reports feeling well. He has no new complaints. Review of Systems Review of Systems: All systems reviewed & are unremarkable except as noted in HPI & below Physical Exam Physical Exam: Constitutional: well developed; + not well nourished and no acute distress Eyes: + anicteric sclerae; normal pupil size ENMT: Ears: no external ear abnormality Nose: no external nose abnormality Mouth: + dry oral mucous membranes Neck: trachea midline, no thyromegaly Respiratory: normal respiratory effort, lungs clear to auscultation able to speak in complete sentences; no retractions, does not use accessory muscles and no cough Cardiovascular: Rate/Rhythm: regular rate and regular rhythm Heart Sounds: no murmur Vessels: no JVD Extremities: normal capillary refill; no calf tenderness and no pedal edema Gastrointestinal (Abdomen): Inspection/Auscultation: abdomen normal to inspection and normal bowel sounds; abdomen not distended Percussion/Palpation: abdomen soft; abdomen nontender, no guarding and abdomen not rigid Musculoskeletal: no cyanosis or clubbing, extremities motor strength 5/5 Left sided trapezius spasm and apin on palpation at insertion to skull. Skin: no rashes, warm and dry (no areas of cellulitis) Neurologic: moves all extremities and awake; no focal motor deficits (no lateralizing) and not confused Psychiatric: A+Ox3, euthymic affect Genitourinary: no CVA tenderness Results & Data Results & Data ([facility]) Vital Signs (Past 12 Hours) Vital Signs Temp Pulse Pulse Pulse Resp BP Pulse Ox 05/31/20 20:00 36.4 C L 61 20 103/58 L 05/31/20 18:45 58 L 05/31/20 14:27 36.4 C L 58 L 16 110/69 91 05/31/20 11:04 36.8 C 54 L 20 90/48 L 91 PG Care Time/CCT Total # of Minutes Spent Total Time Spent with Patient: Total time spent is greater than 50% in coordination of care (as documented) at patient's floor/unit and/or counseling patient: Coding Level of Care Code 10417 Subseq Hosp Care Lvl 3 Diagnoses Pneumonia due to COVID-19 virus U07.1; J12.89 Hypoxia R09.02 Dehydration E86.0 Type 2 diabetes mellitus E11.9 HTN (hypertension) I10 Hyperlipidemia E78.5 Gout M10.9 DVT prophylaxis Z29.9 Time Spent (min) 35
[2020-06-01] MEDS: REMDESIVIR 100 MG in SODIUM CHLORIDE 0.9% 230 ML IV SCH (03:43)
[2020-06-01] MEDS: SODIUM CHLORIDE 0.9% 10ML FLUSH IV SCH (05:41)
[2020-06-01 06:38] LABS: Hematocrit (blood only) 32.6 % (42-52); Hemoglobin 11.3 g/dL (14.0-18.0); Mean Corpuscular Hemoglobin 31.5 pg (25-34); Mean Corpuscular Hgb Conc 34.7 g/dL (32-36); Mean Corpuscular Volume 90.8 fL (80-100); Mean Platelet Volume 10.4 fL (7.4-10.4); Platelet Count 276 K/uL (130-400); RDW Coefficient of Variation 12.8 % (11.5-14.5); RDW Standard Deviation 42.6 fL (36.4-46.3); Red Blood Count 3.59 M/uL (4.7-6.1); White Blood Count 8.08 K/uL (4.8-10.8)
[2020-06-01 07:18] LABS: BUN Creatinine Ratio 59.7 (10-20); Calcium 8.6 mg/dl (8.5-10.1); Creatinine Clr Calc Pharmacy 76.5 ml/min; Est GFR (African American) 73.9; Est GFR (Non-African American) 63.7; Potassium 4.3 mmol/L (3.5-5.1)
[2020-06-01 07:22] LABS: Ferritin 569.4 ng/ml (8-388)
[2020-06-01] MEDS: dexAMETHasone 6 MG in SYRINGE 0 ML IV SCH (07:35)
[2020-06-01] MEDS: VARENICLINE 1 MG TAB PO SCH ×2 (07:35→21:51)
[2020-06-01] MEDS: CHOLECALCIFEROL 1,000 UNITS 25 MCG TAB PO SCH (07:36)
[2020-06-01] MEDS: ENOXAPARIN INJ 40 MG/0.4 ML SYR SQ SCH ×2 (07:36→21:51)
[2020-06-01] MEDS: ASPIRIN 81 MG ECTAB PO SCH (07:37)
[2020-06-01] MEDS: lisinopril 20 MG TAB PO SCH (07:37)
[2020-06-01] MEDS: MULTIVITAMIN TAB PO SCH (07:37)
[2020-06-01] MEDS: INSULIN HUMAN NPH SC SCH (08:25)
[2020-06-01] MEDS: INSULIN ASPART 100 UNITS/ML 3 ML PEN SC SCH ×4 (08:26→22:27)
--- NOTE | 2020-06-01 09:37 | Pharmacy Report ---
Pharmacy Glycemic Short Note 2 - Date of Service June 01, 2020 - Glycemic Short BSG Results (Last 24 hours): 05/31/20 05/31/20 05/31/20 11:00 17:21 20:47 Glucose POC Glucose 176 H 218 H 228 H 06/01/20 06/01/20 05:36 07:13 Glucose 193 H POC Glucose 180 H ASSESSMENT: 06/01: * BSGs of 144, 176, 218, and 228 mg/dL * Patient received 119 units of insulin yesterday (50 units of Lantus, 30 units of NPH, and 39 units of prandial/correctional) * Given upward BSG trend throughout the day - will increase AM NPH with IV dexamethasone and tighten carb ratio 05/30: * Patient received total of 53 units of insulin yesterday, of which 50 were basal (reduction of home dose of 70 units) * BSGs this AM elevated at 197 mg/dL - likely related to steroids, continues on DXM 6 iv daily * Plan to give NPH 0.25 unit/kg daily to help with coverage of IV DXM * Continue same basal insulin for hs PLAN FOR INPATIENT GLYCEMIC CONTROL: * Holding outpatient oral diabetes medications * Basal insulin - increase NPH + Lantus scale HS * Lantus scale SC HS (50-60 units - see EHR for details) * NPH 35 units SC daily w/ IV dexamethasone * Bolus insulin - tighten carb ratio * NovoLog per scale ACHS or Q6hrs while NPO * Goal Range: 110 - 140 mg/dL * Correction Factor: 15 mg/dL/unit * Nutritional / Prandial insulin per carb ratio of 1 unit per 4.5 grams CHO consumed * Please note that the plan above was derived based on current level of insulin resistance and hospital stress. These recommendations are appropriate for inpatient admission only. Plan of care upon discharge will need to be reassessed to avoid potential outpatient hypo/hyperglycemia. Thank you.
[2020-06-01] MEDS: allopurinoL 100 MG TAB PO SCH (21:51)
[2020-06-01] MEDS: ATENOLOL 50 MG TABLET PO SCH (21:51)
[2020-06-01] MEDS: ROSUVASTATIN CALCIUM 10 MG TAB PO SCH (21:52)
[2020-06-01] MEDS: INSULIN GLARGINE SOLOSTAR 100 UNITS/ML 3 ML PEN SC SCH (22:24)
--- NOTE | 2020-06-01 23:25 | Hospitalist Progress Note ---
Date of Service June 01, 2020 Assessment & Plan (1) Pneumonia due to COVID-19 virus: Continue Dexamethasone 6mg IV daily Remdesivir 5 day course: will cotninue for now. Now on room air, however BP has been low. BP remains low despite holding home blood pressure medication. will monitor. (2) Hypoxia: Without respiratory failure. Secondary to COVID-19 diagnosis as above. Aim O2 sats > 90%. (3) Dehydration: NSS 500ml bolus, no further IV fluids unless unable to take adequate oral intake as should correct fluid balance with holding his diuretics. Secondary to poor oral intake with HCTZ and spironolactone use. (4) Type 2 diabetes mellitus: HbA1C 7.1 in April Took Trulicity on Monday Will consult pharmacy for glycemic control with basal bolus insulin and coverage for steroid use. (5) HTN (hypertension): Hold HCTZ, spironolactone, clonidine. Hold diltiazen, continue atenolol and lisinopril with hold parameters. will closely monitor. BP has been low, likely secondary to COVID infection. will likely require full 5 day course, despite being on room air. given low BP. (6) Hyperlipidemia: Continue rosuvastatin 10mg PO HS (7) Gout: Continue allopurinol 100 mg PO daily (8) DVT prophylaxis: Lovenox 40 mg SQ BID Admission and Anticipated Discharge Date Admission Date: May 29, 2020 Subjective Patient reports feeling well. Review of Systems Review of Systems: All systems reviewed & are unremarkable except as noted in HPI & below Physical Exam Physical Exam: Constitutional: well developed; + not well nourished and no acute distress Eyes: + anicteric sclerae; normal pupil size ENMT: Ears: no external ear abnormality Nose: no external nose abnormality Mouth: + dry oral mucous membranes Neck: trachea midline, no thyromegaly Respiratory: normal respiratory effort, lungs clear to auscultation able to speak in complete sentences; no retractions, does not use accessory muscles and no cough Cardiovascular: Rate/Rhythm: regular rate and regular rhythm Heart Sounds: no murmur Vessels: no JVD Extremities: normal capillary refill; no calf tenderness and no pedal edema Gastrointestinal (Abdomen): Inspection/Auscultation: abdomen normal to inspection and normal bowel sounds; abdomen not distended Percussion/Palpation: abdomen soft; abdomen nontender, no guarding and abdomen not rigid Musculoskeletal: no cyanosis or clubbing, extremities motor strength 5/5 Skin: no rashes, warm and dry (no areas of cellulitis) Neurologic: moves all extremities and awake; no focal motor deficits (no lateralizing) and not confused Psychiatric: A+Ox3, euthymic affect Genitourinary: no CVA tenderness Results & Data Results & Data ([facility]) Vital Signs (Past 12 Hours) Vital Signs Temp Pulse Pulse Resp BP Pulse Ox Pulse Ox 06/01/20 23:06 36.2 C L 64 16 124/63 93 06/01/20 20:09 36.3 C L 69 18 137/77 93 06/01/20 16:48 66 06/01/20 15:20 36.2 C L 67 18 143/73 H 94 06/01/20 11:25 90 Pulse Ox Pulse Ox 06/01/20 23:06 06/01/20 20:09 06/01/20 16:48 06/01/20 15:20 06/01/20 11:25 91 88 L PG Care Time/CCT Total # of Minutes Spent Total Time Spent with Patient: Total time spent is greater than 50% in coordination of care (as documented) at patient's floor/unit and/or counseling patient: Coding Level of Care Code 48818 Subseq Hosp Care Lvl 2 Diagnoses Pneumonia due to COVID-19 virus U07.1; J12.89 Hypoxia R09.02 Dehydration E86.0 Type 2 diabetes mellitus E11.9 HTN (hypertension) I10 Hyperlipidemia E78.5 Gout M10.9 DVT prophylaxis Z29.9
[2020-06-02] MEDS: REMDESIVIR 100 MG in SODIUM CHLORIDE 0.9% 230 ML IV SCH (02:09)
[2020-06-02] MEDS: SODIUM CHLORIDE 0.9% 10ML FLUSH IV SCH (03:19)
--- NOTE | 2020-06-02 08:38 | Pharmacy Report ---
Pharmacy Glycemic Short Note 2 - Date of Service June 02, 2020 - Glycemic Short BSG Results (Last 24 hours): 06/01/20 06/01/20 06/01/20 11:16 16:24 20:18 POC Glucose 204 H 300 H 323 H* 06/01/20 06/02/20 20:19 08:26 POC Glucose 333 H* 114 H ASSESSMENT: * BSGs yesterday of 180, 204, 300, and 323 mg/dL * Patient received 173 units of insulin yesterday (60 units of Lantus, 35 units of NPH, and 78 units of prandial/correctional) * NPH and Lantus increase, Novolog parameters tightened * Given upward BSG trend throughout the day despite increases - will further increase AM NPH with IV dexamethasone and continue tightened parameters * Today will be the last dose of remdesivir * Continues on dexamethasone 6 mg IV daily - will cover with NPH PLAN FOR INPATIENT GLYCEMIC CONTROL: * Holding outpatient oral diabetes medications * Basal insulin - increase NPH + adjust Lantus scale HS * Lantus scale SC HS (40-60 units - see EHR for details) * NPH 42 units SC daily w/ IV dexamethasone (20% increase) * Bolus insulin - continue tightened carb ratio * NovoLog per scale ACHS or Q6hrs while NPO * Goal Range: 110 - 140 mg/dL * Correction Factor: 12 mg/dL/unit * Nutritional / Prandial insulin per carb ratio of 1 unit per 4 grams CHO consumed * Please note that the plan above was derived based on current level of insulin resistance and hospital stress. These recommendations are appropriate for inpatient admission only. Plan of care upon discharge will need to be reassessed to avoid potential outpatient hypo/hyperglycemia. Thank you.
[2020-06-02] MEDS ORDERED: INSULIN HUMAN NPH SC SCH ×3 (09:00)
[2020-06-02] MEDS: CHOLECALCIFEROL 1,000 UNITS 25 MCG TAB PO SCH (09:21)
[2020-06-02] MEDS: ENOXAPARIN INJ 40 MG/0.4 ML SYR SQ SCH ×2 (09:21→20:51)
[2020-06-02] MEDS: ASPIRIN 81 MG ECTAB PO SCH (09:22)
[2020-06-02] MEDS: MULTIVITAMIN TAB PO SCH (09:22)
[2020-06-02] MEDS: lisinopril 20 MG TAB PO SCH (09:22)
[2020-06-02] MEDS: VARENICLINE 1 MG TAB PO SCH ×2 (09:23→20:52)
[2020-06-02] MEDS: dexAMETHasone 6 MG in SYRINGE 0 ML IV SCH (09:29)
[2020-06-02] MEDS: INSULIN HUMAN NPH SC SCH (09:30)
[2020-06-02] MEDS: INSULIN ASPART 100 UNITS/ML 3 ML PEN SC SCH ×4 (09:30→20:58)
[2020-06-02] MEDS ORDERED: LACTATED RINGER'S 1,000 ML IV SCH (10:15)
[2020-06-02] MEDS: allopurinoL 100 MG TAB PO SCH (20:51)
[2020-06-02] MEDS: ROSUVASTATIN CALCIUM 10 MG TAB PO SCH (20:51)
[2020-06-02] MEDS: ATENOLOL 50 MG TABLET PO SCH (20:51)
[2020-06-02] MEDS: INSULIN GLARGINE SOLOSTAR 100 UNITS/ML 3 ML PEN SC SCH (21:00)
--- NOTE | 2020-06-02 22:36 | Hospitalist Progress Note ---
Date of Service June 02, 2020 Assessment & Plan (1) Pneumonia due to COVID-19 virus: Continue Dexamethasone 6mg IV daily Remdesivir 5 day course: will cotninue for now. tomorrow will be final day of 5 day course. Now on room air, BP appears to be better today. Now taking lisinopril, will continue to monitor will monitor. (2) Hypoxia: Without respiratory failure. Secondary to COVID-19 diagnosis as above. Aim O2 sats > 90%. (3) Dehydration: NSS 500ml bolus, no further IV fluids unless unable to take adequate oral intake as should correct fluid balance with holding his diuretics. Secondary to poor oral intake with HCTZ and spironolactone use. (4) Type 2 diabetes mellitus: HbA1C 7.1 in April Took Trulicity on Monday Will consult pharmacy for glycemic control with basal bolus insulin and coverage for steroid use. (5) HTN (hypertension): Hold HCTZ, spironolactone, clonidine. Hold diltiazen, continue atenolol and lisinopril with hold parameters. will closely monitor. BP has been low, likely secondary to COVID infection. will likely require full 5 day course, despite being on room air. BP appears better controlled. (6) Hyperlipidemia: Continue rosuvastatin 10mg PO HS (7) Gout: Continue allopurinol 100 mg PO daily (8) DVT prophylaxis: Lovenox 40 mg SQ BID Admission and Anticipated Discharge Date Admission Date: May 29, 2020 Subjective 65 yo male reports feeling well. He has no new complaints. Review of Systems Review of Systems: All systems reviewed & are unremarkable except as noted in HPI & below Physical Exam Physical Exam: Constitutional: well developed; Neck: trachea midline, no thyromegaly Respiratory: normal respiratory effort, lungs clear to auscultation able to speak in complete sentences; no retractions, does not use accessory muscles and no cough Cardiovascular: Rate/Rhythm: regular rate and regular rhythm Heart Sounds: no murmur Vessels: no JVD Extremities: normal capillary refill; no calf tenderness and no pedal edema Gastrointestinal (Abdomen): Inspection/Auscultation: abdomen normal to inspection and normal bowel sounds; Musculoskeletal: no cyanosis or clubbing, extremities motor strength 5/5 Skin: no rashes, warm and dry (no areas of cellulitis) Neurologic: moves all extremities and awake; no focal motor deficits (no lateralizing) and not confused Psychiatric: A+Ox3, euthymic affect Genitourinary: no CVA tenderness Results & Data Results & Data ([facility]) Vital Signs (Past 12 Hours) Vital Signs Temp Pulse Pulse Resp BP Pulse Ox Pulse Ox 06/02/20 20:00 94 06/02/20 19:45 36.9 C 64 18 107/61 92 06/02/20 16:35 59 L 06/02/20 15:57 36.3 C L 59 L 18 107/61 93 06/02/20 11:15 36.8 C 61 18 112/66 94 06/02/20 11:00 55 L PG Care Time/CCT Total # of Minutes Spent Total Time Spent with Patient: Total time spent is greater than 50% in coord ination of care (as documented) at patient's floor/unit and/or counseling patient: Coding Level of Care Code 69269 Subseq Hosp Care Lvl 2 Diagnoses Pneumonia due to COVID-19 virus U07.1; J12.89 Hypoxia R09.02 Dehydration E86.0 Type 2 diabetes mellitus E11.9 HTN (hypertension) I10 Hyperlipidemia E78.5 Gout M10.9 DVT prophylaxis Z29.9 Time Spent (min) 25
[2020-06-03] MEDS: REMDESIVIR 100 MG in SODIUM CHLORIDE 0.9% 230 ML IV SCH (02:30)
[2020-06-03] MEDS: SODIUM CHLORIDE 0.9% 10ML FLUSH IV SCH (03:30)
[2020-06-03 07:06] LABS: Basophils # (auto) 0.01 K/uL (0-0.2); Basophils % (auto) 0.1 %; Eosinophils # (auto) 0.01 K/uL (0-0.5); Eosinophils % (auto) 0.1 %; Hemoglobin 11.9 g/dL (14.0-18.0); Immature Granulocytes # (auto) 0.07 K/uL (0.00-0.02); Immature Granulocytes % (auto) 0.7 %; Lymphocytes # (auto) 2.27 K/uL (1.2-3.4); Lymphocytes % (auto) 23.8 %; Mean Corpuscular Hemoglobin 31.4 pg (25-34); Mean Corpuscular Volume 92.3 fL (80-100); Monocytes # (auto) 0.82 K/uL (0.11-0.59); Monocytes % (auto) 8.6 %; Neutrophils # (auto) 6.37 K/uL (1.4-6.5); Neutrophils % (auto) 66.7 %; Platelet Count 328 K/uL (130-400); Red Blood Count 3.79 M/uL (4.7-6.1); White Blood Count 9.55 K/uL (4.8-10.8)
[2020-06-03 07:39] LABS: Calcium 8.8 mg/dl (8.5-10.1); Creatinine Clr Calc Pharmacy 97.9 ml/min; Est GFR (African American) 99.5; Est GFR (Non-African American) 85.8; Ferritin 467.7 ng/ml (8-388); Potassium 4.4 mmol/L (3.5-5.1)
[2020-06-03] MEDS ORDERED: LACTATED RINGER'S 1,000 ML IV SCH (09:15)
[2020-06-03] MEDS: VARENICLINE 1 MG TAB PO SCH (09:16)
[2020-06-03] MEDS: ASPIRIN 81 MG ECTAB PO SCH (09:16)
[2020-06-03] MEDS: MULTIVITAMIN TAB PO SCH (09:16)
[2020-06-03] MEDS: lisinopril 20 MG TAB PO SCH (09:17)
[2020-06-03] MEDS: CHOLECALCIFEROL 1,000 UNITS 25 MCG TAB PO SCH (09:17)
[2020-06-03] MEDS: ENOXAPARIN INJ 40 MG/0.4 ML SYR SQ SCH (09:18)
[2020-06-03] MEDS: dexAMETHasone 6 MG in SYRINGE 0 ML IV SCH (09:19)
[2020-06-03] MEDS: INSULIN HUMAN NPH SC SCH (09:20)
[2020-06-03] MEDS: INSULIN ASPART 100 UNITS/ML 3 ML PEN SC SCH ×2 (09:20→12:50)
[2020-06-03] MEDS ORDERED: INSULIN GLARGINE SOLOSTAR 100 UNITS/ML 3 ML PEN SC SCH (21:00)
--- NOTE | 2020-06-09 11:16 | Discharge Summary ---
Date of Service June 03, 2020 Admission HPI Per Admitting Provider Paolo Ewing is a 65 year old male with T2DM who presents to the ER with 4 days of feeling generally fatigued. Due to his symptoms he was recently tested for ANKUR-COV2 at [facility] urgent care 2 days ago but is yet to have the results back. He denies any fever, chills, shortness of breath, cough, sore throat, abdominal pain (notably mentioned as positive on "lithography contact worker note"), diarrhea. He does note change in his taste and smell but not loss, loss of appetite. He has been drinking small amounts of clear water but nausea is limiting his oral intake. He didn't take any of his regular medications today (last took Trulicity on Monday). In the ER CXR was concerning for infectious/inflammatory pneumonitis and subsequent SARS-COV2 NAAT positive. He is unsure where he could've picked this up from. 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 O2 sats 91% on room air in the ER. Principal Diagnosis Pneumonia due to COVID 19 Discharge Exam Constitutional: well developed; Neck: trachea midline, no thyromegaly Respiratory: normal respiratory effort, lungs clear to auscultation able to speak in complete sentences; no retractions, does not use accessory muscles and no cough Cardiovascular: Rate/Rhythm: regular rate and regular rhythm Heart Sounds: no murmur Vessels: no JVD Extremities: normal capillary refill; no calf tenderness and no pedal edema Gastrointestinal (Abdomen): Inspection/Auscultation: abdomen normal to inspection and normal bowel sounds; Musculoskeletal: no cyanosis or clubbing, extremities motor strength 5/5 Skin: no rashes, warm and dry (no areas of cellulitis) Neurologic: moves all extremities and awake; no focal motor deficits (no lateralizing) and not confused Psychiatric: A+Ox3, euthymic affect Genitourinary: no CVA tenderness Discharge Data Allergies Allergy/AdvReac Type Severity Reaction Status Date / Time lovastatin Allergy Unknown Unknown Verified 05/29/20 16:52 Consultations 05/29/20 16:21 ED Decision to Admit Stat Hospital Course (1) Pneumonia due to COVID-19 virus: Continue Dexamethasone 6mg IV daily Remdesivir 5 day course: completed this Now on room air BP appears to be better today. Now taking lisinopril, will continue to monitor [facility] as an outpatient. (2) Hypoxia: Without respiratory failure. Secondary to COVID-19 diagnosis as above. Aim O2 sats > 90%. (3) Dehydration: NSS 500ml bolus, no further IV fluids unless unable to take adequate oral intake as should correct fluid balance with holding his diuretics. Secondary to poor oral intake with HCTZ and spironolactone use. (4) Type 2 diabetes mellitus: HbA1C 7.1 in April Took Trulicity on Monday Will consult pharmacy for glycemic control with basal bolus insulin and coverage for steroid use. (5) HTN (hypertension): continue atenolol and lisinopril with hold parameters. will closely monitor. BP has been low, likely secondary to COVID infection. BP appears better controlled at discharge. However will hold clonidine, spironolactone, diltiazem, HCTZ. will recommend close followup as an outpatient. And recheck BP. Patient reports weight loss and believes this may be reason as to why he had low BP. (6) Hyperlipidemia: Continue rosuvastatin 10mg PO HS (7) Gout: Continue allopurinol 100 mg PO daily (8) DVT prophylaxis: Lovenox 40 mg SQ BID Total Time Total Time Spent Total Time Spent (In Minutes): 32 Total Time Includes: Examination of the Patient, Discharge Planning and Medica tion Reconciliation Discharge Plan Discharge Items Patient Disposition: Home - Self-Care Reason For Visit: COVID-19 PNEUMONIA Discharge Diagnosis: COVID-19 Pneumonia Activity: Resume your previous activity Non-emergency contact: Primary Care Provider Call non-emergency contact if: you have any medication questions Follow-up/Referrals: Trey Armstrong MD [Primary Care Provider] - 06/12/20 11:30 am (APPOINTMENT WILL BE BY TELEPHONE.) Diet: Carb Consistent or DM2 and Heart Healthy Addtl Attending Provider Instructions: Coronavirus disease 2019 (COVID-19) is a virus that causes a respiratory illnes s. It is caused by a coronavirus called 2019 novel coronavirus (2019-nCoV). There are many types of coronavirus. Coronaviruses are a very common cause of bronchitis. They may sometimes cause lung infection(pneumonia). Symptoms can range from mild to severe respiratory illness. These viruses are also foundin some animals. COVID-19 was first found in people in [facility], in late 2019. In 2020, several cases of COVID-19 have been confirmed in the [place] Public health officials are working to find the source. How the virus spreads is not yet fully known. It may be spread through droplets of fluid that a person coughs or sneezes into the air. It may be spread if you touch a surface with virus on it, such as a handle or object, and then touch your mouth. What are the symptoms of COVID-19? Some people have no symptoms or mild symptoms. Symptoms may appear 2 to 14 days after contact with the virus. Symptoms can include: Fever Coughing Trouble breathing What are possible complications from COVID-19? In many cases, this virus can cause infection (pneumonia) in both lungs. In some cases, this can cause . How is COVID-19 diagnosed? Your healthcare provider will ask about your symptoms. He or she will also ask about your recent travel and contact with sick people. Testing for the virus is only done through the CDC. If yourhealthcare provider thinks you may have COVID- 19, he or she will work with your local health department and the CDC on testing. Follow all instructions from your healthcare provider. COVID-19 is diagnosed by: Nasal and throat swab. A cotton-tipped swab is wiped inside your nose or throat. This is done to check for viruses in your nasal mucus. Sputum culture. A small sample of mucus coughed from your lungs (sputum) is collected if you have a cough. It is checked for the virus. How is COVID-19 treated? There is currently no medicine to treat the virus. Treatment is done to help your body while it fights the virus. This is known as supportive care. Supportive care may include: Pain medicine. These include acetaminophen and ibuprofen. They are used to help ease pain and reduce fever. Bed rest. This helps your body fight the illness. For severe illness, you may need to stay in the hospital. Care during severe illness may include: IV (intravenous) fluids.These are given through a vein to help keep your body hydrated. Oxygen. Supplemental oxygen or ventilation with a breathing machine (ventilator) may be given. This is done to keep enough oxygen in your body. Are you at risk for COVID-19? If youve been to a place where people have been sick with this virus, you are at risk for infection. You are at risk if you: Recently traveled to an affected area Had contact with a sick person who recently traveled to this area Had contact with a person who was diagnosed with COVID-19 How can COVID-19 be prevented? There is no vaccine yet. The best prevention is to not have contact with the virus. The CDC advises that people should not travel to areas where there are COVID-19 outbreaks right now for any reason that is not urgent. To help prevent spreading the infection, wash your hands often, or use an alcohol-basedhand hide buffer. If you are in an area with COVID-19: Wash your hands often. Or use an alcohol-based hand hide buffer often. Only touch your eyes, nose, or mouth with clean hands. Dont have contact with people who are sick. Follow local instructions about being in public. For example, you may be told to not use public transport for a period of time. Stay away from markets that have live or animals. Wash your hands after touching any animals. Don't touch animals that may be sick. Dont share eating or drinking tools with sick people. Dont kiss someone who is sick. Clean surfaces often with disinfectant. If you were in an area with COVID-19 in the last 14 days: Call your healthcare provider. He or she can talk with local health staff to see what action may be needed. Follow all instructions from your provider. Take your temperature every morning and evening for at least 14 days. This is to check for fever. Keep a record of the readings. Keep watch for symptoms of the virus. Tell your provider right away if you have symptoms. If you were in an area with COVID-19 and have a fever or other symptoms: Dont panic. Keep in mind that other illnesses can cause similar symptoms. Stay away from work, school, and public places. Limit physical contact with family members. Don't kiss anyone or share eating or drinking utensils. Clean surfaces you touch with disinfectant. This is to help prevent the virus from spreading. Call your healthcare provider. Explain that you have been exposed to COVID-19 and have symptoms. Do this before going to any hospital. Wait for instructions. Keep in mind that healthcare staff may wear protective equipment such as masks, gowns, gloves, and eye protection. You may be put in a separate room. This is to prevent the possible virus from spreading. Tell the healthcare staff about recent travel. This includes local travel on public transport. Staff may need to find other people you have been in contact with. Follow all instructions the healthcare staff give you. If you have been diagnosed with COVID-19 Follow all instructions from your healthcare provider. Dont leave your home, except to get medical care. Call your healthcare providers office before going. They can prepare and give you instructions. This will help prevent the virus from spreading. Dont go to work, school, or public areas. Dont use public transport or taxis. Stay away from other people in your home. Have them wear face masks around you. Dont share household items or food. Wear a face mask if you can. This includes at home or in a medical facility. Cover your face with a tissue when you cough or sneeze. Throw the tissue away. Wash your hands. Wash your hands often. Caregivers should: Follow all instructions from healthcare staff. Wear a face mask and protective clothing as advised. Wash hands often. Keep track of the sick persons symptoms. Clean surfaces, fabrics, and laundry thoroughly. Keep other people away from the sick person. When to call your healthcare provider Call your healthcare provider: If youve recently traveled and have symptoms If you have been diagnosed with COVID-19 and your symptoms are worse To learn more To find out more about COVID-19, visit the CDC website at www.cdc.gov/coronavirus/2019-ncov/index.html. 0206-[address] [place] [address]. All rights reserved. This information is not intended as a substitute for professional medical care. Always follow your healthcare professional's instructions. This information has been adapted from [employer] Pending Studies at Discharge: No Stand-Alone Forms: My [employer], Smoking Cessation Medications and DC Order Prescriptions: New dexamethasone 6 mg tablet 6 mg PO DAILY Qty: 4 RF: 0 Continued lisinopril 20 mg tablet 20 mg PO DAILY Qty: 90 RF: 3 cholecalciferol (vitamin D3) 50 mcg (2,000 unit) capsule 50 mcg PO DAILY Qty: 30 RF: 0 metformin 500 mg tablet 1,000 mg PO BID Qty: 360 RF: 1 multivitamin [Multiple Vitamins] tablet 1 tab PO QAM RF: 0 Chantix Continuing Month Box 1 mg tablet 1 mg PO BID Qty: 56 RF: 3 allopurinol 100 mg tablet 100 mg PO QPM RF: 0 atenolol 50 mg tablet 50 mg PO QPM RF: 0 rosuvastatin 10 mg tablet 10 mg PO QPM RF: 0 Tresiba FlexTouch U-100 100 unit/mL (3 mL) insulin pen 70 units SQ HS RF: 0 Trulicity 3 mg/0.5 mL pen injector 3 mg subcut WK RF: 0 aspirin [Aspirin Low Dose] 81 mg Tablet,Delayed Release (Dr/Ec) 81 mg PO QAM RF: 0 acetaminophen [Tylenol Extra Strength] 500 mg Tablet 1,000 mg PO Q6H PRN (Reason: Pain) RF: 0 Discontinued clonidine HCl 0.1 mg tablet 0.1 mg PO QAM Qty: 90 RF: 3 hydrochlorothiazide 25 mg tablet 25 mg PO BID Qty: 180 RF: 3 spironolactone 25 mg tablet 25 mg PO BID Qty: 180 RF: 3 diltiazem HCl 360 mg capsule,extended release 24 hr 360 mg PO QPM RF: 0 Discharge Orders: Discharge Order (Routine); Ordered 06/03/20 Ordered By: Kenneth Castellanos Admission Data Admit Date/Time: 05/29/20 18:19 Attending Provider: Kenneth Castellanos Admit Provider: Stu Oseguera Primary Care Provider: Trey Armstrong Other Providers: Stu Oseguera Other Interventions: Discharge Summary Assessment (RN) Last Done: 06/03/20 13:04 Coding Level of Care Code D/C Day Management >30 mins Diagnoses Pneumonia due to COVID-19 virus U07.1; J12.89 Hypoxia R09.02 Dehydration E86.0 Type 2 diabetes mellitus E11.9 HTN (hypertension) I10 Hyperlipidemia E78.5 Gout M10.9 DVT prophylaxis Z29.9 Time Spent (min) 32
== END 2020-06-03 13:45 | disposition home or self-care (01) | DRG 177 ==
LOC: ED 13:04 → SUATTDRO 18:19 → 2S 18:19